=== PATIENT | female | born 1975 | race Caucasian/White ===

== ENCOUNTER 2017-08-02 20:58 | Inpatient (IN) | payer MEDICAID, OTHER ==
[~2017-08-02] VITALS: Ht 154.9 cm; Wt 41.8 kg
[2017-08-02] MEDS ORDERED: ONDANSETRON HCL 4 MG ORAL DISINTEGRATING TAB PO ONE (21:45)
[2017-08-02] MEDS ORDERED: MULTIVITAMINS- 12 INJECTION 10 ML, FOLIC ACID MDV 5 MG, THIAMINE HCL INJ 500 MG in SODI... IV ONE (21:45)
[2017-08-02] MEDS ORDERED: DIATRIZOATE MEGL/DIATRIZOA SOD 30 ML BTL PO ONE (21:46)
[2017-08-02 23:23] LABS: BASOPHILS % 0.3 % (0.0-1.0); HEMATOCRIT 38.9 % (34.2-44.1); HEMOGLOBIN 12.5 g/dL (12.0-16.0); LYMPHOCYTES # (AUTO) 1.7 (1.0-3.2); MEAN CORPUSCULAR HEMOGLOBIN 35.8 pg (28-32); MEAN CORPUSCULAR HGB CONC 32.1 g/dL (31-35); MEAN CORPUSCULAR VOLUME 111.5 fL (81-99); MONOCYTES # (AUTO) 0.3 (0.2-0.8); NEUTROPHILS # (AUTO) 4.7 (2.1-6.9); NEUTROPHILS % 69.4 % (38.7-80.0); PLATELET COUNT 420 x10e3/uL (140-360); RED BLOOD COUNT 3.49 x10e6/uL (3.6-5.1); RED CELL DISTRIBUTION WIDTH 17.7 % (11.7-14.4)
[2017-08-02 23:27] LABS: INR 1.13; PROTHROMBIN TIME 13.6 seconds (11.9-14.5)
[2017-08-02 23:28] LABS: PARTIAL THROMBOPLASTIN TIME 30.9 seconds (23.8-35.5)
[2017-08-02 23:38] LABS: ALANINE AMINOTRANSFERASE 26 IU/L (0-55); ALBUMIN 2.1 g/dL (3.5-5.0); ALBUMIN/GLOBULIN RATIO 0.7 (0.8-2.0); ALKALINE PHOSPHATASE 270 IU/L (40-150); AMYLASE 31 U/L (25-125); ANION GAP 14.3 mmol/L (8-16); BLOOD UREA NITROGEN < 5 mg/dL (7-26); BUN/CREATININE RATIO 6 (6-25); CARBON DIOXIDE 20 mmol/L (22-29); CHLORIDE 110 mmol/L (98-107); CREATININE, SERUM 0.85 mg/dL (0.57-1.11); EST GLOMERULAR FILTRATION RATE > 60 ML/MIN (60-); GLUCOSE 119 mg/dL (74-118); LIPASE 11 U/L (8-78); MAGNESIUM 1.4 MG/DL (1.3-2.1); POTASSIUM 3.3 mmol/L (3.5-5.1); SODIUM 141 mmol/L (136-145)
[2017-08-03] VITALS (19 sets, daily range): BP systolic 116–128; BP diastolic 78–91
--- NOTE | 2017-08-03 00:39 | Diagnostic Imaging Report ---
EXAM: CT Abdomen and Pelvis WITH contrast INDICATION: Abdominal pain, nausea, vomiting, gastric bypass 4 years ago COMPARISON: None. TECHNIQUE: Abdomen and pelvis were scanned utilizing a multidetector helical scanner from the lung base to the pubic symphysis after administration of IV contrast. Coronal and sagittal reformations were obtained. Routine protocol was performed. Scan was performed when during portal venous phase. IV CONTRAST: 100 mL of Isovue-370 ORAL CONTRAST: Water RADIATION DOSE: Total DLP: 196.84 mGy*cm Estimated effective dose: (DLP x 0.015 x size factor) mSv COMPLICATIONS: None FINDINGS: LINES and TUBES: None. LOWER THORAX: Unremarkable HEPATOBILIARY: The liver is diffuse hypodense compared to the spleen, consistent with diffuse hepatic diffuse hepatic steatosis. No focal hepatic lesions. No biliary ductal dilation. GALLBLADDER: Gallbladder hydrops is present No wall thickening. SPLEEN: No splenomegaly. PANCREAS: No focal masses or ductal dilatation. ADRENALS: No adrenal nodules KIDNEYS/URETERS: Kidneys enhance symmetrically. No hydronephrosis. No cystic or solid mass lesions. No stones. GI TRACT: There is distention of the colon and hyperenhancement of the gastric and duodenal mucosa . Hyperdense material in the rectum may represent blood products. Appendix is normal. PELVIC ORGANS/BLADDER: Unremarkable. LYMPH NODES: No lymphadenopathy. VESSELS: Unremarkable. PERITONEUM / RETROPERITONEUM: There is evidence of upper abdominal pneumoperitoneum and moderate amount of fluid in the peritoneal cavity predominantly in the pelvis and lesser sac. BONES: Unremarkable. SOFT TISSUES: Unremarkable. IMPRESSION: 1. Hollow viscus perforation is highly suspected at the level of the stomach/gastric bypass. 2. Large amount of fluid and air in the peritoneal cavity. 3. Hyperdense material in the rectum may represent blood products. 4. Distention of the colon most likely ileus. 5. These findings were discussed with the ER on 08/03/2017 at 12:33 AM Signed by: Dr. Tor Jeff M.D. on 08/03/2017 12:36 AM
[2017-08-03] MEDS ORDERED: METRONIDAZOLE 500MG/NS 100ML 100 ML IV STA (00:41)
[2017-08-03] MEDS ORDERED: CALCIUM CHLORIDE 10% 1.36 MEQ/ML 10ML SYR IV STA (00:41)
[2017-08-03] MEDS ORDERED: LEVOFLOXACIN 500MG/D5W 100ML 100 ML IV STA (00:41)
[2017-08-03] MEDS ORDERED: POTASSIUM CHLORIDE 20MEQ/100ML 100 ML IV STA (00:41)
[2017-08-03] MEDS: SODIUM CHLORIDE 0.9% 1000ML 1,000 ML IV SCH ×5 (00:45→22:23)
[2017-08-03] MEDS ORDERED: MORPHINE SULFATE 2 MG/ML SYR IV STA (00:54)
[2017-08-03] MEDS ORDERED: SODIUM CHLORIDE 0.9% 1000ML 1,000 ML IV ONE ×2 (01:00→01:30)
[2017-08-03] MEDS ORDERED: ONDANSETRON HCL INJ 2 MG/ML VIAL IV PRN (01:15)
[2017-08-03] MEDS ORDERED: LEVOFLOXACIN 500MG/D5W 100ML IV SCH (01:15)
--- OUTSIDE RECORDS SUMMARY | 2017-08-03 01:52 | XMS REPORT ---
Author Author [facility] Address Unknown Phone Unavailable Care Team Providers Care Manifold Builder Name Role Phone GEO PEPPER Unavailable Unavailable Problems This patient has no known problems. Allergies, Adverse Reactions, Alerts This patient has no known allergies or adverse reactions. Medications This patient has no known medications. Results Test Description Test Time Test Comments Text Results Atomic Results Result Comments CT ABDOMEN/PELVIS W [place] [address] Patient Name: CHELO BOWEN MR #: [id number] : 1975 Age/Sex: 42/F Req #: [id number] Adm Physician: Ordered by: GISELLE MONTES BUILD MASTER Report #: [id number] Location: ER Room/Bed: Procedure: [id number] CT/CT ABDOMEN/PELVIS W Exam Date: 08/03/17 Exam Time: 2359 REPORT STATUS: Signed EXAM: CT Abdomen and Pelvis WITH contrast INDICATION: Abdominal pain, nausea, vomiting, gastric bypass 4 years ago COMPARISON: None. TECHNIQUE: Abdomen and pelvis were scanned utilizing a multidetector helical scanner from the lung base to the pubic symphysis after administration of IV contrast. Coronal and sagittal reformations were obtained. Routine protocol was performed. Scan was performed when during portal venous phase. IV CONTRAST: 100 mL of Isovue-370 ORAL CONTRAST: Water RADIATION DOSE: Total DLP: 196.84 mGy*cm Estimated effective dose: (DLP x 0.015 x size factor) mSv COMPLICATIONS: None FINDINGS: LINES and TUBES: None. LOWER THORAX: Unremarkable HEPATOBILIARY: The liver is diffuse hypodense compared to the spleen, consistent with diffuse hepatic diffuse hepatic steatosis. No focal hepatic lesions. No biliary ductal dilation. GALLBLADDER: Gallbladder hydrops is present No wall thickening. SPLEEN: No splenomegaly. PANCREAS: No focal masses or ductal dilatation. ADRENALS: No adrenal nodules KIDNEYS/URETERS : Kidneys enhance symmetrically. No hydronephrosis. No cystic or solid mass lesions. No stones. GI TRACT: There is distention of the colon and hyperenhancement of the gastric and duodenal mucosa . Hyperdense material in the rectum may represent blood products. Appendix is normal. PELVIC ORGANS/BLADDER: Unremarkable. LYMPH NODES: No lymphadenopathy. VESSELS : Unremarkable. PERITONEUM / RETROPERITONEUM: There is evidence of upper abdominal pneumoperitoneum and moderate amount of fluid in the peritoneal cavity predominantly in the pelvis and lesser sac. BONES: Unremarkable. SOFT TISSUES: Unremarkable. IMPRESSION: 1. Hollow viscus perforation is highly suspected at the level of the stomach/gastric bypass. 2. Large amount of fluid and air in the peritoneal cavity. 3. Hyperdense material in the rectum may represent blood products. 4. Distention of the colon most likely ileus. 5. These findings were discussed with the ER on 08/03/2017 at 12:33 AM Signed by: Dr. Tor Jeff M.D. on 12:36 AM Dictated By: TOR TATUM MD Transcribed By: VIVIAN on 08/03/1735 COPY TO: GISELLE MONTES NP
[2017-08-03] MEDS ORDERED: SODIUM CHLORIDE 0.9% 50ML 50 ML ONE (01:56)
[2017-08-03] MEDS ORDERED: IOPAMIDOL 370 MG/ML 200 ML INFUS..BTL INJ ONE (01:56)
[2017-08-03] MEDS ORDERED: FENTANYL CITRATE/PF 100MCG/2 ML INJ ONE ×2 (05:39→14:53)
[2017-08-03] MEDS ORDERED: METRONIDAZOLE 500MG/NS 100ML IV SCH (06:00)
--- NOTE | 2017-08-03 06:22 | Operative Report ---
DATE OF PROCEDURE: August 03, 2017 PREOPERATIVE DIAGNOSIS: Perforated viscus. POSTOPERATIVE DIAGNOSIS: Perforated gastrojejunostomy anastomosis. OPERATIVE PROCEDURES 1. Exploratory laparotomy. 2. Redo gastrojejunostomy. 3. Repair of internal hernia. ANESTHESIA: General endotracheal. INDICATIONS: This patient is a 42-year-old female with a 1-week history of progressive of pain, which became severe in the last few days, anorexic and vomiting. The patient was found on CT scan to have free air in the abdomen with evidence of perforated viscus. She was resuscitated in the emergency room with 2 L of crystalloid, and emergency exploratory laparotomy has been consented by patient and family. PROCEDURE FINDINGS: Perforated gastrojejunostomy with complete breakdown of the gastrojejunostomy anastomosis. A large amount of peritoneal fluid contamination. There is internal herniation of the To type. DESCRIPTION OF PROCEDURE: The patient was brought to the OR and intubated. The abdomen was then prepped with alcohol and draped in a sterile fashion. A midline incision was made from the xiphoid down to the umbilicus through the linea alba. Upon entering the peritoneal cavity, the exudative purulent peritoneal fluid was encountered and suctioned out. Approximately, 500 mL was removed in the upper abdomen. We then localized the site of the perforation, which was at the gastrojejunostomy, which is completely broken down just attached by the 1 small area. At this point, decision made to redo the anastomosis completely. The piece of tissue attached at the remaining anastomosis is completely taken down with scissors. The previous enterotomy on the jejunal side is removed with a AUSTYN stapler along with the mesentery. We then performed a 1-layer anastomosis between the antimesenteric border of the jejunum to the gastric opening using interrupted 2-0 silk stitches full-thickness layer. At the completion of the anastomosis, we proceeded to run the bowel in a retrograde fashion from the ileocecal valve backward. The bowel was noted to be passing through a To hernia behind the Caitie limb, which is actually twisted in a 180-degree fashion. At this point, after reduction of the internal hernia through the To defect, we realized at the anastomosis had to be redone because it is 180 degrees twisted. The silk stitches were taken down. The gastrojejunostomy anastomosis completely disconnected. We then performed the gastrojejunostomy anastomosis again in the correct orientation with twisting, again using full-thickness 1-layer anastomosis between the antimesenteric border of the jejunal Caitie limb and the gastric remnant using interrupted 3-0 silk stitches. Anastomosis was completed. Additional anterior Lembert stitches were placed to reinforce the anastomosis. A tongue of omentum was also placed to cover the gastrojejunostomy. We then irrigated the peritoneal cavity with copious saline solution. Approximately, 6 L were used until all the contaminating fluid was removed. Hemostasis achieved. We placed a 19-Welsh Matty drain in the left upper quadrant adjacent to the anastomoses, and taken out to the stab wound incision in the left lower quadrant. The abdominal cavity was then closed using running 0 PDS starting from both ends and tying in the middle. Skin closed with marcos. The patient was then extubated and transported in guarded condition to the recovery room. Estimated blood loss 50 mL. Job#: [id number] OSMANI
--- NOTE | 2017-08-03 07:05 | Consultation ---
DATE OF CONSULTATION: August 03, 2017 CHIEF COMPLAINT: Abdominal pain. HISTORY OF PRESENT ILLNESS: The patient is 42-year-old female with 6-day history of upper abdominal pain, progressive in severity with no oral intakes in the last 4 days with intermittent nausea and vomiting. No hematemesis. She admits to chills. No diarrhea. PAST MEDICAL HISTORY: Significant for morbid obesity for which she underwent gastric bypass surgery about 5 years ago. ALLERGIES: SHE HAS NO DRUG ALLERGIES. SOCIAL HABITS: She does not smoke or drink alcohol. REVIEW OF SYSTEMS: As mentioned in HPI, severe abdominal pain radiating to the chest. PHYSICAL EXAMINATION: VITAL SIGNS: Temperature 96, pulse 104, blood pressure 96/65. GENERAL: Patient is awake, responsive, in severe discomfort. HEENT: Sclerae nonicteric. NECK: Supple. LUNGS: Clear. HEART: Tachycardic. No murmurs. ABDOMEN: Diffusely tender with rebound tenderness in all quadrants. EXTREMITIES: Clammy and cold. No edema. LABORATORY DATA: White cell count 6.7, hemoglobin of 12, platelet count 420,000. Creatinine 0.8. Lipase 11. CT scan showed pneumoperitoneum and fluid collection in the upper abdomen suggestive of perforated viscus. ASSESSMENT: Perforated viscus in patient who had gastric bypass surgery. PLAN: Exploratory laparotomy, possible bowel resection. Attendant risks discussed. Thank you. Job#: [id number]
[2017-08-03] MEDS: METRONIDAZOLE 500MG/NS 100ML 100 ML IV SCH ×3 (07:34→18:13)
[2017-08-03 07:48] LABS: BASOPHILS % 0.2 % (0.0-1.0); HEMATOCRIT 36.9 % (34.2-44.1); HEMOGLOBIN 11.6 g/dL (12.0-16.0); LYMPHOCYTES # (AUTO) 0.7 (1.0-3.2); LYMPHOCYTES % 8.1 % (18.0-39.1); MEAN CORPUSCULAR HEMOGLOBIN 35.5 pg (28-32); MEAN CORPUSCULAR HGB CONC 31.4 g/dL (31-35); MEAN CORPUSCULAR VOLUME 112.8 fL (81-99); MONOCYTES # (AUTO) 0.6 (0.2-0.8); MONOCYTES % 6.9 % (4.4-11.3); NEUTROPHILS # (AUTO) 7.7 (2.1-6.9); NEUTROPHILS % 84.6 % (38.7-80.0); PLATELET COUNT 360 x10e3/uL (140-360); RED BLOOD COUNT 3.27 x10e6/uL (3.6-5.1); RED CELL DISTRIBUTION WIDTH 17.5 % (11.7-14.4)
[2017-08-03 08:11] LABS: ANION GAP 12.3 mmol/L (8-16); BLOOD UREA NITROGEN < 5 mg/dL (7-26); BUN/CREATININE RATIO 8 (6-25); CALCIUM 7.6 mg/dL (8.4-10.2); CARBON DIOXIDE 19 mmol/L (22-29); CHLORIDE 117 mmol/L (98-107); CREATININE, SERUM 0.66 mg/dL (0.57-1.11); EST GLOMERULAR FILTRATION RATE > 60 ML/MIN (60-); GLUCOSE 114 mg/dL (74-118); POTASSIUM 4.3 mmol/L (3.5-5.1); SODIUM 144 mmol/L (136-145)
[2017-08-03] MEDS: MORPHINE SULFATE 2 MG/ML SYR IV PRN ×3 (10:14→22:56)
[2017-08-03] MEDS ORDERED: GABAPENTIN300 MG PO (10:49)
[2017-08-03] MEDS ORDERED: DEXAMETHASONE SOD PHOS INJ 4 MG/ML VIAL ONE (18:40)
[2017-08-03] MEDS ORDERED: LIDOCAINE HCL 2% LOCAL INJ 5 ML SDV VIAL INJ ONE (18:40)
[2017-08-03] MEDS ORDERED: GLYCOPYRROLATE INJ 1MG/ 5 ML SYR ONE (18:40)
[2017-08-03] MEDS ORDERED: ONDANSETRON HCL INJ 2 MG/ML VIAL ONE (18:40)
[2017-08-03] MEDS ORDERED: SEVOFLURANE INHAL SOLN 250 ML PEN BTL ONE (18:40)
[2017-08-03] MEDS ORDERED: ACETAMINOPHEN 1000 MG/100 ML IV ONE (18:40)
[2017-08-03] MEDS ORDERED: LABETALOL HCL 5 MG/ML 20ML VIAL ONE (18:40)
[2017-08-03] MEDS ORDERED: PROPOFOL IV EMULSION 10 MG/ML 20 ML VIAL ONE (18:40)
[2017-08-03] MEDS ORDERED: ROCURONIUM BROMIDE 10 MG/ML 5ML VIAL ONE (18:40)
[2017-08-03] MEDS ORDERED: NEOSTIGMINE 1 MG/ML 10ML VIAL ONE (18:40)
[2017-08-03] MEDS ORDERED: HYDROMORPHONE 1MG/1ML INJ IV PRN (18:45)
[2017-08-03] MEDS ORDERED: LACTATED RINGER'S 1,000 ML ONE (18:45)
[2017-08-03] MEDS ORDERED: LACTATED RINGER'S 1,000 ML IV ONE (18:45)
[2017-08-03] MEDS ORDERED: HYDROMORPHONE 2MG/ML INJ IV PRN (18:45)
[2017-08-03] MEDS: LEVOFLOXACIN 500MG/D5W 100ML 100 ML IV SCH (22:34)
[2017-08-03] MEDS: METOPROLOL TARTRATE INJ 1 MG/ML VIAL IV PRN (22:35)
[2017-08-03] MEDS ORDERED: SUBOXONE 8 MG-1 EAC2 PO (23:11)
[2017-08-04] VITALS (39 sets, daily range): BP systolic 119–138; BP diastolic 85–105
[2017-08-04] MEDS: METRONIDAZOLE 500MG/NS 100ML 100 ML IV SCH ×4 (00:25→17:56)
[2017-08-04] MEDS: HYDROMORPHONE 2MG/ML INJ IV PRN ×6 (00:26→19:41)
[2017-08-04] MEDS ORDERED: FUROSEMIDE INJ 10 MG/ML 2 ML VIAL IV ONE (01:45)
[2017-08-04] MEDS ORDERED: DIATRIZOATE MEGL/DIATRIZOA SOD 30 ML BTL PO ONE (02:00)
[2017-08-04] MEDS ORDERED: THIAMINE HCL INJ 100 MG/ML 2ML VIAL IV ONE (03:15)
[2017-08-04] MEDS ORDERED: FENTANYL 50 MCG/HR PATCH TOP SCH (03:30)
--- NOTE | 2017-08-04 03:44 | Diagnostic Imaging Report ---
EXAM: CT Abdomen and Pelvis WITHOUT contrast INDICATION: Postsurgical leak COMPARISON: 08/03/2017 TECHNIQUE: Abdomen and pelvis were scanned utilizing a multidetector helical scanner from the lung base to the pubic symphysis without administration of IV contrast. Absence of intravenous contrast decreases sensitivity for detection of focal lesions and vascular pathology. Coronal and sagittal reformations were obtained. Routine protocol was performed. IV CONTRAST: None. ORAL CONTRAST: Gastrografin RADIATION DOSE: Total DLP: 416.37 mGy*cm Estimated effective dose: (DLP x 0.015 x size factor) mSv COMPLICATIONS: None FINDINGS: LINES and TUBES: NG tube, left upper quadrant drain and Alanis catheter are present. LOWER THORAX: The development of bibasilar airspace opacities and small bilateral pleural effusions. The airspace disease most likely represent aspiration or atelectasis in this patient status post surgery HEPATOBILIARY: The liver is diffuse hypodense compared to the spleen, consistent with diffuse hepatic diffuse hepatic steatosis. No focal hepatic lesions. No biliary ductal dilation. GALLBLADDER: Hydropic gallbladder with dependent hyperdensity. No wall thickening. SPLEEN: No splenomegaly. PANCREAS: No focal masses or ductal dilatation. ADRENALS: No adrenal nodules KIDNEYS/URETERS: No hydronephrosis. No cystic or solid mass lesions. No stones. GI TRACT: No abnormal distention, wall thickening, or evidence of bowel obstruction. Positive contrast was given through NG tube demonstrating radiopaque contrast within the stomach and proximal jejunum confirming patency of the gastrojejunostomy. No evidence of contrast leak into the peritoneal cavity. Appendix is not clearly identified. There is however no fat stranding or adenopathy in the right lower quadrant to suggest appendicitis. PELVIC ORGANS/BLADDER: Unremarkable. LYMPH NODES: No lymphadenopathy. VESSELS: Unremarkable. PERITONEUM / RETROPERITONEUM: Near resolution of free abdominal fluid and pneumoperitoneum in this patient is status post laparotomy BONES: Unremarkable. SOFT TISSUES: Unremarkable. IMPRESSION: 1. Positive contrast was given through NG tube without evidence of intraperitoneal leak. Normal passage of contrast from the stomach into the gastrojejunostomy. 2. Near resolution of ascites and pneumoperitoneum. 3. Development of bibasilar atelectasis/aspiration with small pleural effusions. 4. Hydropic gallbladder. Signed by: Dr. Tor Jeff M.D. on 08/04/2017 3:40 AM
[2017-08-04] MEDS: SODIUM CHLORIDE 0.9% 1000ML 1,000 ML IV SCH ×6 (05:11→19:26)
[2017-08-04 06:07] LABS: BASOPHILS % 0.2 % (0.0-1.0); HEMATOCRIT 32.6 % (34.2-44.1); HEMOGLOBIN 10.6 g/dL (12.0-16.0); LYMPHOCYTES # (AUTO) 1.4 (1.0-3.2); LYMPHOCYTES % 12.1 % (18.0-39.1); MEAN CORPUSCULAR HEMOGLOBIN 35.8 pg (28-32); MEAN CORPUSCULAR HGB CONC 32.5 g/dL (31-35); MEAN CORPUSCULAR VOLUME 110.1 fL (81-99); MONOCYTES # (AUTO) 1.2 (0.2-0.8); MONOCYTES % 10.4 % (4.4-11.3); NEUTROPHILS # (AUTO) 9.1 (2.1-6.9); PLATELET COUNT 354 x10e3/uL (140-360); RED BLOOD COUNT 2.96 x10e6/uL (3.6-5.1); RED CELL DISTRIBUTION WIDTH 18.1 % (11.7-14.4)
--- NOTE | 2017-08-04 06:15 | Diagnostic Imaging Report ---
EXAMINATION: CHEST SINGLE (PORTABLE) INDICATION: Abdominal pain, perforation. COMPARISON: CT abdomen and pelvis on 08/04/2017 FINDINGS: TUBES and LINES: NG tube is visualized with tip in the region of the gastric body. NG tube sidehole appears within the distal esophagus. LUNGS: Lungs are not well inflated. There is predominantly left lower lobe airspace opacity in the retrocardiac space. PLEURA: Small left pleural effusion. HEART AND MEDIASTINUM: The cardiomediastinal silhouette is unremarkable. BONES AND SOFT TISSUES: No acute osseous lesion. Soft tissues are unremarkable. UPPER ABDOMEN: No free air under the diaphragm. IMPRESSION: Minimal airspace disease in the left lower lobe associated with trace of pleural effusion best visualized on CT of the abdomen and pelvis. Signed by: Dr. Tor Jeff M.D. on 08/04/2017 6:12 AM
[2017-08-04 06:43] LABS: ALANINE AMINOTRANSFERASE 22 IU/L (0-55); ALBUMIN 1.5 g/dL (3.5-5.0); ALBUMIN/GLOBULIN RATIO 0.6 (0.8-2.0); ALKALINE PHOSPHATASE 202 IU/L (40-150); ANION GAP 11.1 mmol/L (8-16); BLOOD UREA NITROGEN < 5 mg/dL (7-26); CALCIUM 7.8 mg/dL (8.4-10.2); CARBON DIOXIDE 21 mmol/L (22-29); CHLORIDE 117 mmol/L (98-107); CREATININE, SERUM 0.51 mg/dL (0.57-1.11); EST GLOMERULAR FILTRATION RATE > 60 ML/MIN (60-); GLUCOSE 92 mg/dL (74-118); POTASSIUM 4.1 mmol/L (3.5-5.1); SODIUM 145 mmol/L (136-145)
[2017-08-04 06:45] LABS: BUN/CREATININE RATIO 10 (6-25)
[2017-08-04 07:22] LABS: FREE THYROXINE INDEX 1.3464 (1.4-3.8); THYROID STIMULATING HORMONE 1.886 uIU/mL (0.350-4.940)
[2017-08-04] MEDS: MULTIVITAMINS- 12 INJECTION 10 ML, FOLIC ACID MDV 5 MG, THIAMINE HCL INJ 100 MG in SODI... IV SCH ×2 (08:00→19:40)
--- NOTE | 2017-08-04 08:37 | Consultation ---
DATE OF CONSULTATION: August 04, 2017 PULMONARY CRITICAL CARE MEDICINE CONSULT REASON FOR REFERRAL: Pulmonary hygiene and postoperative state. HISTORY: Mrs. Huber is a pleasant 42-year-old female with abdominal pain. The patient was not feeling very good for at least 4 days. The patient was hardly eating. She has had progressive nausea. The patient denies any hematemesis. No diarrhea. She comes to the emergency room for evaluation. She is feeling worse. In the emergency room, CT scan shows pneumoperitoneum and fluid collection in upper abdomen suggestive of perforated viscus. The patient had a pre-existing abdominal surgery history. In December 2012, she underwent Caitie-en-Y bypass as part of a weight loss program. The patient underwent exploratory laparotomy with redo gastrojejunostomy and repair of internal hernia. The important operative finding was a perforated gastrojejunostomy anastomosis. Estimated blood loss was 15 mL. She comes to the ICU. Heart rate often up to 140-150. However, she is hemodynamically stable. She has good urine output. She is in a lot of pain. At this time, I am consulted. PAST MEDICAL HISTORY: History of Caitie-en-Y 5 years ago for morbid obesity, chronic pain, on Suboxone therapy. MEDICATIONS: She claims she is on Suboxone with Dr. Prosper Benedict, and she states she is on 14 mg dose. Other medicines per EMR. Currently, on Levaquin and Flagyl for infection. ALLERGIES: NO KNOWN DRUG ALLERGIES. SOCIAL HISTORY: She denies heavy drinking. She claims she smoked. Denies drugs. FAMILY HISTORY: Noncontributory. REVIEW OF SYSTEMS GENERAL: There is weight changes. There is a 20-pound weight loss in 2 months. HEENT: No dry mouth. ENDOCRINE: No thyroid disease. PULMONARY: No asthma. CARDIAC: No heart attacks. GI: No chronic constipation. : No blood in the urine. DERMATOLOGIC: No rash. MUSCULOSKELETAL: Mild arthritis. NEUROLOGIC: No seizures. PSYCHIATRIC: No depression. PHYSICAL EXAMINATION VITALS: Afebrile. Vital signs noted and stable per record. HEENT: Normocephalic and atraumatic. NECK: Supple. Throat midline. LUNGS: Bilateral air entry is good. Few bilateral rhonchi. CARDIOVASCULAR: S1 and S2. No murmurs, rubs or gallops. ABDOMEN: Soft and nontender. EXTREMITIES: No clubbing. No cyanosis. There is no edema. INTEGUMENT: No rash. No purpura. LABS: White count 10, hematocrit 12 and creatinine 0.8. Lipase 11. INR 1.1. Alkaline phosphatase 270, AST 57, ALT 26. White count 9 noted. Hematocrit was 36.9 with MCV of 111. B12 level was 817. HCG level was negative. IMPRESSION AND PLAN 1. Severe tachycardia, multifactorial. 2. Treat for perforated gastrojejunostomy anastomosis. 3. Treat for secondary peritonitis. 4. Status post repair of internal hernia. 5. Postoperative state, status post redo gastrojejunostomy. 6. Chronic pain. 7. Morbid obesity, status post previous Caitie-en-Y in December 2012. 8. Postoperative pain. 9. Microcytic hemoglobin. 10. Suspected chronic nutritional deficiency, not otherwise specified. At this time, will give thiamine. Furthermore, vitamins daily. Continue IV fluids for now. IV antibiotics for peritonitis. Will give her some long-acting opiates and try to taper off some of the fast-acting opiates. Will follow along closely. The patient is in guarded condition. Will check ultrasound of the legs. Screening chest x-ray. Check urine drug screen. Thank you very much, Dr. Graham and Dr. Venegas for this consult. I remain available for questions. Please call. Job#: [id number] OSMANI
[2017-08-04] MEDS: METOPROLOL TARTRATE INJ 1 MG/ML VIAL IV PRN ×2 (12:00→19:50)
[2017-08-04] MEDS ORDERED: FENTANYL CITRATE/PF 100MCG/2 ML INJ ONE (12:59)
[2017-08-04] MEDS ORDERED: MIDAZOLAM HCL 2 MG/2 ML VIAL ONE (12:59)
[2017-08-04] MEDS ORDERED: LIDOCAINE HCL 1% LOCAL INJ 20 ML VIAL ONE (13:17)
[2017-08-04] MEDS ORDERED: MIDAZOLAM HCL 2 MG/2 ML VIAL IV ONE (14:00)
[2017-08-04] MEDS ORDERED: FENTANYL CITRATE/PF 100MCG/2 ML INJ IV ONE (14:00)
--- NOTE | 2017-08-04 15:26 | Diagnostic Imaging Report ---
PROCEDURE:PERC CHOLECYSTOSTOMY W TUBE PLACEMENT INC IMAGING COMPARISON:[facility], CT, CT ABDOMEN/PELVIS WO, 08/04/2017, 2:54. INDICATIONS:Gallbladder hydrops DLP: 633.73mGy-cm FINDINGS:Informed consent and time out was performed. SEDATION:Procedure was performed with conscious sedation and the patient received a total of 2 mg of Versed and 100 mcg of Fentanyl. The patient was continuously monitored prior to and following the procedure. Sterile preparation of the right upper abdomen was accomplished. A grid was placed over the right lobe of the liver. Appropriate position was determined and local anesthesia was accomplished with 1% Xylocaine. A 5 [place] Yueh catheter was then placed into the gallbladder. Aspiration of thick dark bilious fluid was noted. A 0.035 inch Amplatz Super Stiff wire was placed through the Yueh catheter and followed by an 8 [place]ander dilator. A 10 [place] all-purpose drainage catheter was then placed into the gallbladder. This was secured to the skin with 3-0 suture. Catheter was connected to a drainage bag. Post catheter placement images were obtained. Specimen was sent to the laboratory for culture and sensitivity. CONCLUSION:Successful image guided cholecystostomy tube placement. Renny Martinez D.O. Dictated by: Renny Martinez D.O. on 08/04/2017 at 15:28 Electronically approved by: Renny Martinez D.O. on 08/04/2017 at 15:28
[2017-08-04] MEDS ORDERED: HYDROMORPHONE 1MG/1ML INJ IV PRN (17:45)
[2017-08-04] MEDS ORDERED: HYDROMORPHONE 2MG/ML INJ IV PRN (18:00)
[2017-08-04] MEDS: ACETAMINOPHEN 1000 MG/100 ML IV PRN (22:05)
[2017-08-04] MEDS: LEVOFLOXACIN 500MG/D5W 100ML 100 ML IV SCH (22:32)
[2017-08-05] VITALS (51 sets, daily range): BP systolic 117–139; BP diastolic 86–105
[2017-08-05] MEDS: MULTIVITAMINS- 12 INJECTION 10 ML, FOLIC ACID MDV 5 MG, THIAMINE HCL INJ 100 MG in SODI... IV SCH ×3 (00:12→22:05)
[2017-08-05] MEDS: METRONIDAZOLE 500MG/NS 100ML 100 ML IV SCH ×4 (00:29→17:34)
--- NOTE | 2017-08-05 00:40 | Progress Note ---
DATE: August 04, 2017 PULMONARY MEDICINE PROGRESS NOTE FOLLOWUP Patient maintained with continued tachycardias into the evening. Patient is awake. She is on fentanyl patch in addition to the Dilaudid. We will continue to follow along closely. maintain. Labs will be ordered for the morning. Continue metoprolol although it is not high indication. Patient needs aggressive antibiotics for this sepsis. Greater than 30 minutes of direct care today and multiple followups from the morning to evening. We will follow along closely. She remains in critical condition and she will stay in ICU. Job#: [id number]
[2017-08-05] MEDS: HYDROMORPHONE 2MG/ML INJ IV PRN ×7 (00:41→23:13)
[2017-08-05] MEDS: ACETAMINOPHEN 1000 MG/100 ML IV PRN ×2 (05:07→20:14)
[2017-08-05 05:40] LABS: BASOPHILS % 0.3 % (0.0-1.0); EOSINOPHILS % 0.1 % (0.0-6.0); HEMATOCRIT 34.5 % (34.2-44.1); HEMOGLOBIN 10.1 g/dL (12.0-16.0); LYMPHOCYTES # (AUTO) 2.1 (1.0-3.2); LYMPHOCYTES % 17.6 % (18.0-39.1); MEAN CORPUSCULAR HEMOGLOBIN 35.9 pg (28-32); MEAN CORPUSCULAR HGB CONC 29.3 g/dL (31-35); MEAN CORPUSCULAR VOLUME 122.8 fL (81-99); MONOCYTES # (AUTO) 1.1 (0.2-0.8); MONOCYTES % 9.6 % (4.4-11.3); NEUTROPHILS # (AUTO) 8.4 (2.1-6.9); NEUTROPHILS % 72.1 % (38.7-80.0); PLATELET COUNT 279 x10e3/uL (140-360); RED BLOOD COUNT 2.81 x10e6/uL (3.6-5.1); RED CELL DISTRIBUTION WIDTH 18.2 % (11.7-14.4)
--- NOTE | 2017-08-05 06:02 | Diagnostic Imaging Report ---
EXAMINATION: CHEST SINGLE (PORTABLE) INDICATION: Weakness, cough COMPARISON: 08/04/2017 FINDINGS: TUBES and LINES: NG tube is stable in good position. There is a partially visualized left upper quadrant drain. LUNGS: Lungs are not well inflated. Interlobular septi thickening. Interval increase in airspace opacity involving the left lower lobe and now also affected the bilateral upper lobes PLEURA: No pleural effusion or pneumothorax. HEART AND MEDIASTINUM: The cardiomediastinal silhouette is unremarkable. BONES AND SOFT TISSUES: No acute osseous lesion. Soft tissues are unremarkable. UPPER ABDOMEN: No free air under the diaphragm. IMPRESSION: 1. Findings are compatible with left lung infection versus aspiration. 2. Mild interlobular septal thickening compatible with edema. Signed by: Dr. Tor Jeff M.D. on 08/05/2017 5:58 AM
[2017-08-05 06:06] LABS: ALANINE AMINOTRANSFERASE 16 IU/L (0-55); ALBUMIN 1.4 g/dL (3.5-5.0); ALBUMIN/GLOBULIN RATIO 0.5 (0.8-2.0); ALKALINE PHOSPHATASE 174 IU/L (40-150); ANION GAP 12.3 mmol/L (8-16); BLOOD UREA NITROGEN < 5 mg/dL (7-26); CALCIUM 7.5 mg/dL (8.4-10.2); CARBON DIOXIDE 16 mmol/L (22-29); CHLORIDE 119 mmol/L (98-107); CREATININE, SERUM 0.46 mg/dL (0.57-1.11); EST GLOMERULAR FILTRATION RATE > 60 ML/MIN (60-); GLUCOSE 61 mg/dL (74-118); MAGNESIUM 1.4 MG/DL (1.3-2.1); POTASSIUM 4.3 mmol/L (3.5-5.1); SODIUM 143 mmol/L (136-145)
[2017-08-05 06:20] LABS: BUN/CREATININE RATIO 11 (6-25)
[2017-08-05] MEDS: METOPROLOL TARTRATE INJ 1 MG/ML VIAL IV PRN ×2 (10:24→20:14)
[2017-08-05] MEDS ORDERED: FUROSEMIDE INJ 10 MG/ML 4 ML VIAL IV NR (12:00)
--- NOTE | 2017-08-05 12:44 | Diagnostic Imaging Report ---
Examination: Single AP view of the chest. COMPARISON: Single chest 08/05/2017 INDICATION: PICC line placement IMPRESSION: 1. Lines and Tubes: Interval placement of right-sided PICC line, which is distal tip projecting at the cavoatrial junction. 2. Enteric tube has distal tip projecting at the GE junction and proximal side port projecting in the distal esophagus. Further advancement is recommended. 3. Otherwise no interval change. Signed by: Dr. Saturnino Vasquez M.D. on 08/05/2017 12:40 PM
--- NOTE | 2017-08-05 15:55 | Progress Note ---
DATE: August 05, 2017 PULMONARY MEDICINE PROGRESS NOTE SUBJECTIVE: Mrs. Huber was seen and examined at the bedside. The patient went for ultrasound of the legs, which showed no evidence of any lower extremity DVT. Three liters per minute nasal cannula oxygen at this time and tolerating well. She is intermittently even on room air oxygen. However, she still remains with tachycardia often in the 110-120 heart rate. In 3.6 and 2.1 L out. She is getting slight increase in pain medicine, but is readily awakening on these. REVIEW OF SYSTEMS: No bleeding. No rash. OBJECTIVE VITALS: Afebrile. Vital signs noted per electronic record. GENERAL: No acute distress. Alert and calm. HEENT: Normocephalic and atraumatic. NECK: Supple. Throat midline. LUNGS: Bilateral air entry. Few decreased breath sounds in the bases, especially the left side. Rare rhonchi. CARDIOVASCULAR: S1 and S2. No murmurs, rubs or gallops. ABDOMEN: Soft and nontender. EXTREMITIES: No clubbing. No cyanosis. There is no edema. INTEGUMENT: No rash. No purpura. LABS: Potassium 4.3, less than 5 BUN, creatinine 0.5. White count 12, hematocrit 35 and platelets 279,000. IMPRESSION AND PLAN 1. Severe tachycardia, multifactorial. 2. Chronic opiate use, on chronic Suboxone for suspected dependence. 3. Mild postoperative hypoxemia. 4. Severe protein calorie malnutrition. 5. History of bariatric surgery. 6. Hydrops of gallbladder, status post cholecystostomy tube. 7. Rupture of gastrojejunostomy, status post redo gastrojejunostomy anastomosis. Continue with aggressive therapy for peritonitis. Continue pain management and follow serially in the ICU. Follow up as the heart rate continues to go down. Continue IV fluids. Continue daily vitamins. Will follow along closely. Job#: [id number] OSMANI
[2017-08-05] MEDS: LEVOFLOXACIN 500MG/D5W 100ML 100 ML IV SCH (22:45)
[2017-08-05] MEDS: LORAZEPAM INJ 2 MG/ML VIAL IV PRN (23:15)
[2017-08-06] VITALS (59 sets, daily range): BP systolic 100–130; BP diastolic 74–95
[2017-08-06] MEDS: METRONIDAZOLE 500MG/NS 100ML 100 ML IV SCH ×4 (00:28→17:44)
[2017-08-06] MEDS: MULTIVITAMINS- 12 INJECTION 10 ML, FOLIC ACID MDV 5 MG, THIAMINE HCL INJ 100 MG in SODI... IV SCH ×2 (00:30→08:42)
[2017-08-06] MEDS: HYDROMORPHONE 2MG/ML INJ IV PRN ×5 (04:50→21:11)
[2017-08-06] MEDS: METOPROLOL TARTRATE INJ 1 MG/ML VIAL IV PRN ×3 (05:37→20:47)
[2017-08-06 05:42] LABS: BASOPHILS % 0.2 % (0.0-1.0); EOSINOPHILS % 0.3 % (0.0-6.0); HEMATOCRIT 28.5 % (34.2-44.1); HEMOGLOBIN 8.9 g/dL (12.0-16.0); LYMPHOCYTES # (AUTO) 2.4 (1.0-3.2); MEAN CORPUSCULAR HEMOGLOBIN 35.7 pg (28-32); MEAN CORPUSCULAR HGB CONC 31.2 g/dL (31-35); MEAN CORPUSCULAR VOLUME 114.5 fL (81-99); MONOCYTES % 8.3 % (4.4-11.3); NEUTROPHILS # (AUTO) 8.3 (2.1-6.9); NEUTROPHILS % 70.7 % (38.7-80.0); PLATELET COUNT 312 x10e3/uL (140-360); RED BLOOD COUNT 2.49 x10e6/uL (3.6-5.1); RED CELL DISTRIBUTION WIDTH 17.4 % (11.7-14.4)
[2017-08-06 06:02] LABS: ANION GAP 17.1 mmol/L (8-16); BLOOD UREA NITROGEN < 5 mg/dL (7-26); CALCIUM 7.6 mg/dL (8.4-10.2); CARBON DIOXIDE 15 mmol/L (22-29); CHLORIDE 116 mmol/L (98-107); CREATININE, SERUM 0.44 mg/dL (0.57-1.11); EST GLOMERULAR FILTRATION RATE > 60 ML/MIN (60-); POTASSIUM 3.1 mmol/L (3.5-5.1); SODIUM 145 mmol/L (136-145)
[2017-08-06 06:05] LABS: BUN/CREATININE RATIO 11 (6-25)
[2017-08-06 06:06] LABS: GLUCOSE 51 mg/dL (74-118)
[2017-08-06] MEDS ORDERED: DEXTROSE 50% SYRINGE 50 ML IV ONE (06:12)
[2017-08-06] MEDS: DEXTROSE 50% SYRINGE 50 ML IV PRN ×3 (06:40→12:56)
--- NOTE | 2017-08-06 07:01 | Diagnostic Imaging Report ---
EXAMINATION: CHEST SINGLE (PORTABLE) INDICATION: Pneumonia. COMPARISON: 08/05/2017 FINDINGS: TUBES and LINES: Right upper extremity PICC line and NG tube are in good position. Left upper quadrant drain is stable. LUNGS: Lungs are not well inflated. There are bibasilar atelectasis. Worsening interlobular septi thickening and alveolar opacities compatible with pulmonary edema. Confluent left lower lobe opacity is less conspicuous in keeping with pneumonia. PLEURA: No pleural effusion or pneumothorax. HEART AND MEDIASTINUM: The cardiomediastinal silhouette is unremarkable. BONES AND SOFT TISSUES: No acute osseous lesion. Soft tissues are unremarkable. UPPER ABDOMEN: No free air under the diaphragm. IMPRESSION: 1. Worsening pulmonary edema. 2. Persistent left lower lobe opacity, less conspicuous consistent with pneumonia. 3. Tubes and lines are in good position. Signed by: Dr. Tor Jeff M.D. on 08/06/2017 6:58 AM
[2017-08-06] MEDS ORDERED: POTASSIUM CHLORIDE 20MEQ/100ML 200 ML IV ONE ×2 (11:45→14:15)
[2017-08-06] MEDS ORDERED: MAGNESIUM SULFATE 2GM/50ML 100 ML IV ONE (11:45)
[2017-08-06] MEDS ORDERED: MAGNESIUM SULFATE IV ONE (12:30)
[2017-08-06] MEDS ORDERED: SODIUM CHLORIDE 0.9% IV ONE (12:30)
[2017-08-06] MEDS: FUROSEMIDE INJ 10 MG/ML 4 ML VIAL IV SCH ×2 (12:33→21:11)
[2017-08-06] MEDS ORDERED: MAGNESIUM SULFATE 2GM/50ML 50 ML IV ONE (14:15)
[2017-08-06] MEDS: SODIUM BICARBONATE 8.4% IV SCH (14:38)
[2017-08-06] MEDS: DEXTROSE 5% IV SCH (14:38)
[2017-08-06] MEDS: POTASSIUM CHL IV SCH (14:38)
--- NOTE | 2017-08-06 14:42 | Progress Note ---
DATE: August 06, 2017 PULMONARY MEDICINE PROGRESS NOTE SUBJECTIVE: Mrs. Huber was seen and examined at bedside. Oxygen saturation 95% and 2 L per minute by nasal cannula. She intermittently desaturates to the low 80s or high 80% range. In 1.6 L and out 3.9 L. The patient is not coughing and not participating with incentive spirometry nor mobilization as per the nurses. Patient continues on pain medicine. Chest x-ray shows worse edema, but she got Lasix, and she is already responding very well to this. REVIEW OF SYSTEMS: No headaches. No rash. OBJECTIVE VITALS: Afebrile. Vital signs noted per electronic record. GENERAL: In no acute distress. Alert and calm. HEENT: Normocephalic and atraumatic. NECK: Supple. Throat midline. LUNGS: Bilateral air entry. Moderate rhonchi in both lungs. CARDIOVASCULAR: S1 and S2. No murmurs, rubs or gallops. ABDOMEN: Soft and nontender. EXTREMITIES: No clubbing. No cyanosis. There is trace edema. INTEGUMENT: No rash. No purpura. LABS: Potassium 3.1, BUN 5, creatinine 0.4. White count 12, hematocrit 29 and platelets 312,000. IMPRESSION AND PLAN 1. Fluid overload, iatrogenic and multifactorial. 2. Perforated gastrojejunostomy anastomosis: Status post gastrojejunal repair. 3. Chronic pain. 4. Hypokalemia and hypomagnesemia. 5. Retained airway secretions. 6. Tachycardia, sinus, not otherwise specified: Multifactorial including from withdrawal from pain medicines, residual sepsis/systemic inflammatory response syndrome/infection, possible nutritional deficiency, chronic. 7. Treat for chronic nutritional deficiency, anemia with macrocytosis. Continue daily vitamins. Change fluids and give more dextrose. Will follow along closely. Change IV fluids out. IV antibiotics for sepsis. Job#: [id number] OSMANI
[2017-08-06] MEDS: ENOXAPARIN SOD INJ 40 MG/0.4 ML SYR SC SCH (17:44)
[2017-08-06] MEDS: LEVOFLOXACIN 500MG/D5W 100ML 100 ML IV SCH (21:11)
[2017-08-06] MEDS: LORAZEPAM INJ 2 MG/ML VIAL IV PRN (21:12)
[2017-08-06] MEDS ORDERED: METOPROLOL TARTRATE INJ 1 MG/ML VIAL IV PRN (22:45)
[2017-08-07] VITALS (78 sets, daily range): BP systolic 84–119; BP diastolic 48–89
[2017-08-07] MEDS: METRONIDAZOLE 500MG/NS 100ML 100 ML IV SCH ×4 (00:43→18:00)
[2017-08-07] MEDS: HYDROMORPHONE 2MG/ML INJ IV PRN ×4 (00:47→12:59)
[2017-08-07] MEDS: SODIUM BICARBONATE 8.4% IV SCH (02:41)
[2017-08-07] MEDS: POTASSIUM CHL IV SCH (02:41)
[2017-08-07] MEDS: DEXTROSE 5% IV SCH (02:41)
[2017-08-07 06:16] LABS: BASOPHILS % 0.2 % (0.0-1.0); EOSINOPHILS # (AUTO) 0.1 (0.0-0.4); EOSINOPHILS % 0.3 % (0.0-6.0); HEMATOCRIT 28.6 % (34.2-44.1); HEMOGLOBIN 9.4 g/dL (12.0-16.0); LYMPHOCYTES # (AUTO) 1.5 (1.0-3.2); LYMPHOCYTES % 10.5 % (18.0-39.1); MEAN CORPUSCULAR HEMOGLOBIN 34.9 pg (28-32); MEAN CORPUSCULAR HGB CONC 32.9 g/dL (31-35); MEAN CORPUSCULAR VOLUME 106.3 fL (81-99); MONOCYTES # (AUTO) 2.1 (0.2-0.8); MONOCYTES % 14.2 % (4.4-11.3); NEUTROPHILS # (AUTO) 10.9 (2.1-6.9); NEUTROPHILS % 74.3 % (38.7-80.0); PLATELET COUNT 320 x10e3/uL (140-360); RED BLOOD COUNT 2.69 x10e6/uL (3.6-5.1); RED CELL DISTRIBUTION WIDTH 17.1 % (11.7-14.4)
[2017-08-07 06:40] LABS: ALANINE AMINOTRANSFERASE 9 IU/L (0-55); ALBUMIN 1.4 g/dL (3.5-5.0); ALBUMIN/GLOBULIN RATIO 0.5 (0.8-2.0); ALKALINE PHOSPHATASE 153 IU/L (40-150); ANION GAP 11.9 mmol/L (8-16); CALCIUM 7.6 mg/dL (8.4-10.2); CARBON DIOXIDE 28 mmol/L (22-29); CHLORIDE 106 mmol/L (98-107); CREATININE, SERUM 0.48 mg/dL (0.57-1.11); EST GLOMERULAR FILTRATION RATE > 60 ML/MIN (60-); GLUCOSE 116 mg/dL (74-118); MAGNESIUM 1.4 MG/DL (1.3-2.1); PHOSPHORUS 2.3 MG/DL (2.3-4.7); POTASSIUM 3.9 mmol/L (3.5-5.1); SODIUM 142 mmol/L (136-145)
[2017-08-07 06:44] LABS: BLOOD UREA NITROGEN < 5 mg/dL (7-26); BUN/CREATININE RATIO 10 (6-25)
--- NOTE | 2017-08-07 07:02 | Diagnostic Imaging Report ---
EXAMINATION: CHEST SINGLE (PORTABLE) INDICATION: Edema COMPARISON: 08/06/2017 FINDINGS: TUBES and LINES: Right upper extremity PICC line and NG tube are in good position. Left upper quadrant drain is stable. LUNGS: Lungs are not well inflated. There are bibasilar atelectasis. Worsening interlobular septi thickening and alveolar opacities compatible with pulmonary edema. Confluent left lower lobe opacity is less conspicuous in keeping with pneumonia. PLEURA: No pleural effusion or pneumothorax. HEART AND MEDIASTINUM: The cardiomediastinal silhouette is unremarkable. BONES AND SOFT TISSUES: No acute osseous lesion. Soft tissues are unremarkable. UPPER ABDOMEN: No free air under the diaphragm. IMPRESSION: 1. Stable pulmonary edema. 2. Persistent left lower lobe opacity, less conspicuous consistent with pneumonia. 3. Tubes and lines are in good position. Signed by: Dr. Tor Jeff M.D. on 08/07/2017 6:58 AM
[2017-08-07 07:41] LABS: CLARITY,URINE CLEAR (CLEAR); COLOR,URINE YELLOW (YELLOW); LEUKOCYTE ESTERASE ,URINE NEGATIVE (NEGATIVE); NITRITE,URINE NEGATIVE (NEGATIVE)
[2017-08-07 07:42] LABS: BILIRUBIN,URINE NEGATIVE (NEGATIVE); KETONES,URINE NEGATIVE (NEGATIVE); PROTEIN,URINE DIPSTICK NEGATIVE (NEGATIVE); URINE UROBILINOGEN 0.2 mg/dL (0.2 - 1)
[2017-08-07 07:43] LABS: AMPHETAMINES SCREEN,URINE NEGATIVE (NEGATIVE); BENZODIAZEPINES SCREEN,URINE POSITIVE (NEGATIVE); PHENCYCLIDINE SCREEN,URINE NEGATIVE (NEGATIVE)
[2017-08-07 08:15] LABS: LYMPHOCYTES % (MANUAL) 10 % (19-48); MONOCYTES % (MANUAL) 19 % (3.4-9.0); NEUTROPHILS % (MANUAL) 70 % (40-74)
[2017-08-07 08:16] LABS: ANISOCYTOSIS SLIGHT; HYPOCHROMASIA SLIGHT; PLATELET ESTIMATE ADEQUATE; PLATELET MORPHOLOGY COMMENT NORMAL
[2017-08-07 08:18] LABS: RBC MORPHOLOGY COMMENT NORMAL; STOMATOCYTES SLIGHT
[2017-08-07 08:19] LABS: BACTERIA,URINE RARE /HPF; EPITHELIAL CELLS,URINE FEW /LPF
[2017-08-07 08:24] LABS: RBC,URINE 0-5 /HPF (0-5); YEAST,URINE MODERATE
[2017-08-07] MEDS: FUROSEMIDE INJ 10 MG/ML 4 ML VIAL IV SCH ×2 (09:48→21:07)
[2017-08-07] MEDS: PANTOPRAZOLE 40 MG 10ML VIAL IV SCH (11:00)
--- NOTE | 2017-08-07 12:50 | Progress Note ---
DATE: August 07, 2017 PULMONARY MEDICINE PROGRESS NOTE SUBJECTIVE: Mrs. Huber was seen and examined at bedside. She continues to have some difficulty mobilizing. She had a repeat CT today. Bicarbonate is much better today on IV bicarbonate replacement. No more hypoglycemia with the dextrose back up. Has 92% oxygen saturation on 5 L per minute nasal cannula. NG tube output is 150 mL over 4 hours, but part of it is flushes as well. She remains in bed weak and in pain. However, she states the pain is a little bit better today. REVIEW OF SYSTEMS: No bleeding. No chest pain. OBJECTIVE VITALS: Afebrile. Vital signs noted per electronic record. GENERAL: Looks weak and pale in bed, lying mostly flat, does not want to move. HEENT: Normocephalic and atraumatic. NECK: Supple. Throat midline. LUNGS: Bilateral air entry. Mild to moderate rhonchi bilaterally. CARDIOVASCULAR: S1 and S2. No murmurs, rubs or gallops. ABDOMEN: Soft and nontender. EXTREMITIES: No clubbing. No cyanosis. There is no edema. INTEGUMENT: No rash. No purpura. LABS: BUN 5, creatinine 0.5, 142 sodium, 15 white count, 29 hematocrit, 320 platelets. IMPRESSION AND PLAN 1. Abnormal chest radiography, pneumonia. 2. Retained airway secretions. 3. Sinus tachycardia, stabilizing we hope. 4. Treat for perforated gastrojejunostomy anastomosis. 5. Treat for secondary peritonitis. 6. Status post repair of internal hernia. 7. Chronic pain. 8. History of previous Caitie-en-Y jejunostomy in December 2012. 9. Clinical severe protein-calorie malnutrition and suspected chronic nutritional deficiency. Modify IV fluids to remove the bicarbonate. Repeat electrolytes in the morning. TPN to be started per report. Continue oxygen supplementation. Keep opiates at a lower dose to allow the patient to continue to expectorate and not suppress her cough. Continue NG tube monitoring and suction. Patient remains in very guarded condition and should stay in the ICU. Job#: [id number]
[2017-08-07] MEDS: POTASSIUM CHL 20 MEQ in DEXTROSE 5% 1,000 ML IV SCH ×2 (13:30→23:06)
[2017-08-07] MEDS: ENOXAPARIN SOD INJ 40 MG/0.4 ML SYR SC SCH (17:30)
[2017-08-07] MEDS: ACETAMINOPHEN 1000 MG/100 ML IV PRN (17:50)
[2017-08-07] MEDS ORDERED: CENTRAL TPN FORMULA 1 BAG IV SCH (20:00)
[2017-08-07] MEDS: LEVOFLOXACIN 500MG/D5W 100ML 100 ML IV SCH (22:00)
[2017-08-08] VITALS (90 sets, daily range): BP systolic 73–118; BP diastolic 31–85
[2017-08-08] MEDS: METRONIDAZOLE 500MG/NS 100ML 100 ML IV SCH ×5 (00:15→23:55)
[2017-08-08 06:40] LABS: BASOPHILS % 0.3 % (0.0-1.0); EOSINOPHILS # (AUTO) 0.1 (0.0-0.4); EOSINOPHILS % 0.4 % (0.0-6.0); HEMATOCRIT 26.2 % (34.2-44.1); HEMOGLOBIN 8.7 g/dL (12.0-16.0); LYMPHOCYTES # (AUTO) 1.9 (1.0-3.2); LYMPHOCYTES % 14.1 % (18.0-39.1); MEAN CORPUSCULAR HEMOGLOBIN 35.1 pg (28-32); MEAN CORPUSCULAR HGB CONC 33.2 g/dL (31-35); MEAN CORPUSCULAR VOLUME 105.6 fL (81-99); MONOCYTES # (AUTO) 1.9 (0.2-0.8); MONOCYTES % 13.9 % (4.4-11.3); NEUTROPHILS # (AUTO) 9.7 (2.1-6.9); NEUTROPHILS % 70.6 % (38.7-80.0); PLATELET COUNT 278 x10e3/uL (140-360); RED BLOOD COUNT 2.48 x10e6/uL (3.6-5.1); RED CELL DISTRIBUTION WIDTH 16.6 % (11.7-14.4)
--- NOTE | 2017-08-08 07:01 | Diagnostic Imaging Report ---
EXAM: CHEST SINGLE (PORTABLE), AP 1 view INDICATION: Pneumonia COMPARISON: AP view of the chest August 07, 2017 FINDINGS: LINES/TUBES: Stable position of nasogastric tube and right subclavian central line and left upper quadrant drain. LUNGS: Persistent consolidation in the left lung base and bilateral reticulonodular changes. PLEURA: Cannot exclude pleural effusion on the left. HEART AND MEDIASTINUM: Normal size and contour. BONES AND SOFT TISSUES: No acute findings. IMPRESSION: Stable findings of pneumonia, predominantly in the left lung base. Signed by: Dr. Shellie Edwards M.D. on 08/08/2017 6:57 AM
[2017-08-08 07:04] LABS: ALANINE AMINOTRANSFERASE 6 IU/L (0-55); ALBUMIN 1.3 g/dL (3.5-5.0); ALBUMIN/GLOBULIN RATIO 0.5 (0.8-2.0); ALKALINE PHOSPHATASE 127 IU/L (40-150); ANION GAP 10.3 mmol/L (8-16); BLOOD UREA NITROGEN < 5 mg/dL (7-26); CALCIUM 7.6 mg/dL (8.4-10.2); CARBON DIOXIDE 33 mmol/L (22-29); CHLORIDE 99 mmol/L (98-107); EST GLOMERULAR FILTRATION RATE > 60 ML/MIN (60-); GLUCOSE 98 mg/dL (74-118); MAGNESIUM 1.4 MG/DL (1.3-2.1); POTASSIUM 3.3 mmol/L (3.5-5.1); SODIUM 139 mmol/L (136-145)
[2017-08-08 07:05] LABS: BUN/CREATININE RATIO 13 (6-25)
[2017-08-08] MEDS: HYDROMORPHONE 2MG/ML INJ IV PRN ×3 (08:20→21:00)
[2017-08-08] MEDS: PANTOPRAZOLE 40 MG 10ML VIAL IV SCH (08:47)
[2017-08-08] MEDS: FUROSEMIDE INJ 10 MG/ML 4 ML VIAL IV SCH (08:47)
[2017-08-08] MEDS: ACETAMINOPHEN 1000 MG/100 ML IV PRN ×2 (10:38→18:15)
--- NOTE | 2017-08-08 12:39 | Progress Note ---
DATE: August 08, 2017 PULMONARY MEDICINE PROGRESS NOTE SUBJECTIVE: Ms. Huber was seen and examined at bedside. Patient continues to have spontaneous breathing. We had come down on her pain medicines again. The patient was able to stand up, but we seem to really have to encourage her strongly to get up. She reportedly started coughing a little bit. She still remains in a lot of pain and refused some incentive spirometry. Had 2.6 L in and 4.0 L out recorded. Patient is seeing a decubitus. REVIEW OF SYSTEMS: No headache. No bleeding. OBJECTIVE VITALS: Afebrile. Vital signs noted per electronic record. GENERAL: No acute distress, alert and calm. HEENT: Normocephalic and atraumatic. NECK: Supple. Throat midline. LUNGS: Bilateral air entry. Rare rhonchi, much better today. CARDIOVASCULAR: S1 and S2. No murmurs, rubs or gallops. ABDOMEN: Soft and nontender. EXTREMITIES: No clubbing. No cyanosis. There is no edema. INTEGUMENT: No rash. No purpura. LABS: Potassium 2.2, less than 5 BUN, 0.4 creatinine, 14 white count, 26 hematocrit, 278 platelets. IMPRESSION AND PLAN 1. Secondary peritonitis. 2. Perforated gastrojejunostomy anastomosis. 3. Status post repair of internal hernia and redo gastrojejunostomy. 4. Tachycardia, multifactorial, sinus. 5. Chronic pain. 6. Chronic nutritional deficiency with superimposed acute. 7. Morbid obesity. History of Caitie-en-Y surgery in December 2012. PLAN 1. Continue vitamin supplement. 2. Continue TPN. 3. IV antibiotics continue. 4. Encourage the patient to get up. 5. Continue to decrease pain medicines as feasible. Job#: [id number]
[2017-08-08] MEDS ORDERED: VANCOMYCIN 1GM/NS 250 ML 250 ML IV SCH (15:00)
[2017-08-08] MEDS: FLUCONAZOLE 200 MG/100 ML 100 ML IV SCH (16:10)
[2017-08-08] MEDS: ENOXAPARIN SOD INJ 40 MG/0.4 ML SYR SC SCH (16:59)
[2017-08-08] MEDS: BALSAM PERU/CASTOR OIL 60 GM OINT...G. TP SCH (18:10)
[2017-08-08] MEDS ORDERED: ACETAMINOPHEN 1000 MG/100 ML IV PRN (18:45)
[2017-08-08] MEDS ORDERED: CENTRAL TPN FORMULA 1 BAG IV SCH (20:00)
[2017-08-08] MEDS: LORAZEPAM INJ 2 MG/ML VIAL IV PRN (21:48)
[2017-08-08] MEDS: CEFEPIME HCL 1 GM VIAL IV SCH (22:05)
[2017-08-08] MEDS: LEVOFLOXACIN 500MG/D5W 100ML 100 ML IV SCH (22:05)
[2017-08-09] VITALS (63 sets, daily range): BP systolic 93–128; BP diastolic 61–100
[2017-08-09] MEDS: VANCOMYCIN 750MG/NS 150ML IVPB 150 ML IV SCH ×2 (03:00→15:23)
[2017-08-09] MEDS: CEFEPIME HCL 1 GM VIAL IV SCH ×3 (06:00→21:15)
[2017-08-09] MEDS: METRONIDAZOLE 500MG/NS 100ML 100 ML IV SCH ×4 (06:00→23:34)
[2017-08-09] MEDS: HYDROMORPHONE 2MG/ML INJ IV PRN ×6 (06:00→21:25)
--- NOTE | 2017-08-09 06:37 | Diagnostic Imaging Report ---
EXAM: CHEST SINGLE (PORTABLE), AP 1 view INDICATION: Pneumonia COMPARISON: AP view of the chest August 08, 2017 FINDINGS: LINES/TUBES: Stable right approach PICC and nasal/orogastric tube. Left upper quadrant surgical drain. LUNGS: Persistent airspace opacities bilaterally, predominantly in the left lung base. PLEURA: Possible left pleural effusion. HEART AND MEDIASTINUM: Normal size and contour. BONES AND SOFT TISSUES: No acute findings. IMPRESSION: Stable appearance of the chest. Findings concerning for multifocal pneumonia. Signed by: Dr. Shellie Edwards M.D. on 08/09/2017 6:34 AM
[2017-08-09 06:44] LABS: BASOPHILS % 0.3 % (0.0-1.0); EOSINOPHILS # (AUTO) 0.3 (0.0-0.4); EOSINOPHILS % 2.9 % (0.0-6.0); HEMATOCRIT 23.6 % (34.2-44.1); HEMOGLOBIN 7.7 g/dL (12.0-16.0); LYMPHOCYTES % 18.7 % (18.0-39.1); MEAN CORPUSCULAR HEMOGLOBIN 34.1 pg (28-32); MEAN CORPUSCULAR HGB CONC 32.6 g/dL (31-35); MEAN CORPUSCULAR VOLUME 104.4 fL (81-99); MONOCYTES # (AUTO) 1.2 (0.2-0.8); MONOCYTES % 11.3 % (4.4-11.3); NEUTROPHILS # (AUTO) 6.9 (2.1-6.9); NEUTROPHILS % 66.2 % (38.7-80.0); PLATELET COUNT 248 x10e3/uL (140-360); RED BLOOD COUNT 2.26 x10e6/uL (3.6-5.1); RED CELL DISTRIBUTION WIDTH 16.7 % (11.7-14.4)
[2017-08-09 07:07] LABS: ANION GAP 9.5 mmol/L (8-16); BLOOD UREA NITROGEN 5 mg/dL (7-26); BUN/CREATININE RATIO 13 (6-25); CALCIUM 7.6 mg/dL (8.4-10.2); CARBON DIOXIDE 31 mmol/L (22-29); CHLORIDE 105 mmol/L (98-107); CREATININE, SERUM 0.38 mg/dL (0.57-1.11); EST GLOMERULAR FILTRATION RATE > 60 ML/MIN (60-); GLUCOSE 92 mg/dL (74-118); MAGNESIUM 1.5 MG/DL (1.3-2.1); PHOSPHORUS 3.1 MG/DL (2.3-4.7); POTASSIUM 3.5 mmol/L (3.5-5.1); SODIUM 142 mmol/L (136-145)
[2017-08-09] MEDS: BALSAM PERU/CASTOR OIL 60 GM OINT...G. TP SCH ×2 (08:29→16:52)
[2017-08-09] MEDS: PANTOPRAZOLE 40 MG 10ML VIAL IV SCH (09:13)
[2017-08-09] MEDS: FUROSEMIDE INJ 10 MG/ML 4 ML VIAL IV SCH (09:13)
[2017-08-09] MEDS ORDERED: SODIUM CHLORIDE 0.9% 250ML 250 ML IV ONE (11:15)
[2017-08-09] MEDS ORDERED: FENTANYL 25 MCG/HR PATCH TOP SCH (11:15)
--- NOTE | 2017-08-09 11:31 | Progress Note ---
DATE: August 09, 2017 PULMONARY MEDICINE PROGRESS NOTE SUBJECTIVE: Ms. Huber was seen and examined at bedside. She continues to have slow progress. Today she was able to mobilize and sit in a chair. The patient continues to have steady progress. Besides sitting up in a chair, her heart rate remained stable in 110s to 120s range. She is tolerating somewhat of a decrease in pain medicines. Gastric output 375 from NG tube. The drainage was 265 mL total over the 2 drains that are in place on her abdomen. The patient is tolerating TPN in general. Four liters per minute by nasal cannula with 95% oxygen saturation. REVIEW OF SYSTEMS: No headache. No bleeding. OBJECTIVE VITALS: Afebrile. Vital signs noted per electronic record. GENERAL: No acute distress, looks pale sitting up in a chair. HEENT: Normocephalic and atraumatic. NECK: Supple. Throat midline. LUNGS: Bilateral air entry. Decreased rhonchi today. Decreased effort, however, so limited. CARDIOVASCULAR: S1 and S2. No murmurs, rubs or gallops. ABDOMEN: Soft and nontender. EXTREMITIES: No clubbing. No cyanosis. There is no edema. INTEGUMENT: No rash. No purpura. LABS: White count 10.5, 24 hematocrit, 248 platelets. Potassium 2.5, 31 bicarbonate, 5 BUN, 0.4 creatinine. White count 10, 23 hematocrit, 248 platelets. Chest x-ray consistent with pneumonitis. IMPRESSION AND PLAN 1. Secondary peritonitis, perforated gastrojejunostomy anastomosis. 2. Chronic pain. 3. Tachycardia persistent. 4. Early decubitus of skin. 5. Chronic nutritional deficiency , acute nutritional deficiency superimposed. 6. History of morbid obesity and Caitie-en-Y surgery in the past. PLAN 1. Continue current treatment. 2. Patient will continue on some IV fluids. We asked the wharf builder to evaluate the TPN and nutrition formulation to ensure it is optimized. 3. Patient will continue with pain management, but will slightly titrate downwards. 4. Continue treatment for severe peritonitis. 5. Follow along closely. Job#: [id number]
[2017-08-09] MEDS ORDERED: ACETAMINOPHEN 1000 MG/100 ML IV PRN (12:30)
[2017-08-09] MEDS: FLUCONAZOLE 200 MG/100 ML 100 ML IV SCH (14:11)
[2017-08-09] MEDS ORDERED: HYDROMORPHONE 1MG/1ML INJ IV PRN (15:15)
[2017-08-09] MEDS ORDERED: SODIUM CHLORIDE 0.9% 250ML 250 ML ONE ×2 (17:03→19:15)
[2017-08-09] MEDS: ENOXAPARIN SOD INJ 40 MG/0.4 ML SYR SC SCH (18:04)
[2017-08-09] MEDS: CENTRAL TPN FORMULA 1 BAG IV SCH (19:55)
[2017-08-09] MEDS: LEVOFLOXACIN 500MG/D5W 100ML 100 ML IV SCH (21:15)
[2017-08-10] VITALS (47 sets, daily range): BP systolic 104–142; BP diastolic 77–98
[2017-08-10] MEDS: HYDROMORPHONE 2MG/ML INJ IV PRN ×7 (00:34→21:10)
[2017-08-10] MEDS: LORAZEPAM INJ 2 MG/ML VIAL IV PRN ×2 (01:10→21:09)
[2017-08-10] MEDS: VANCOMYCIN 750MG/NS 150ML IVPB 150 ML IV SCH ×2 (03:00→15:53)
[2017-08-10] MEDS ORDERED: SODIUM CHLORIDE 0.9% 250ML 250 ML ONE (04:04)
[2017-08-10] MEDS: CEFEPIME HCL 1 GM VIAL IV SCH ×3 (05:12→22:12)
[2017-08-10 06:20] LABS: BASOPHILS # (AUTO) 0.1 (0.0-0.1); BASOPHILS % 0.5 % (0.0-1.0); EOSINOPHILS # (AUTO) 0.3 (0.0-0.4); HEMATOCRIT 30.6 % (34.2-44.1); HEMOGLOBIN 10.4 g/dL (12.0-16.0); LYMPHOCYTES # (AUTO) 2.6 (1.0-3.2); LYMPHOCYTES % 25.4 % (18.0-39.1); MEAN CORPUSCULAR HEMOGLOBIN 32.5 pg (28-32); MEAN CORPUSCULAR VOLUME 95.6 fL (81-99); MONOCYTES # (AUTO) 1.1 (0.2-0.8); NEUTROPHILS # (AUTO) 6.1 (2.1-6.9); NEUTROPHILS % 59.5 % (38.7-80.0); PLATELET COUNT 260 x10e3/uL (140-360); RED CELL DISTRIBUTION WIDTH 23.2 % (11.7-14.4)
[2017-08-10 06:53] LABS: ALBUMIN 1.3 g/dL (3.5-5.0); ALBUMIN/GLOBULIN RATIO 0.5 (0.8-2.0); ALKALINE PHOSPHATASE 95 IU/L (40-150); ANION GAP 10.7 mmol/L (8-16); BLOOD UREA NITROGEN 6 mg/dL (7-26); BUN/CREATININE RATIO 16 (6-25); CALCIUM 7.9 mg/dL (8.4-10.2); CARBON DIOXIDE 27 mmol/L (22-29); CHLORIDE 108 mmol/L (98-107); CREATININE, SERUM 0.37 mg/dL (0.57-1.11); EST GLOMERULAR FILTRATION RATE > 60 ML/MIN (60-); GLUCOSE 73 mg/dL (74-118); MAGNESIUM 1.9 MG/DL (1.3-2.1); PHOSPHORUS 4.6 MG/DL (2.3-4.7); POTASSIUM 3.7 mmol/L (3.5-5.1); SODIUM 142 mmol/L (136-145); TRIGLYCERIDES 110 MG/DL (0-149)
[2017-08-10 06:55] LABS: ALANINE AMINOTRANSFERASE < 6 IU/L (0-55)
[2017-08-10 07:44] LABS: ANISOCYTOSIS MODE; HYPOCHROMASIA SLIGHT; PLATELET ESTIMATE ADEQUATE; PLATELET MORPHOLOGY COMMENT FEW GIANT; POIKILOCYTOSIS MODERATE; RBC MORPHOLOGY COMMENT ABNORMAL
[2017-08-10] MEDS: BALSAM PERU/CASTOR OIL 60 GM OINT...G. TP SCH ×2 (08:02→16:33)
[2017-08-10] MEDS: FUROSEMIDE INJ 10 MG/ML 4 ML VIAL IV SCH (08:26)
[2017-08-10] MEDS: PANTOPRAZOLE 40 MG 10ML VIAL IV SCH (08:26)
[2017-08-10] MEDS: ACETAMINOPHEN 1000 MG/100 ML IV PRN ×3 (10:43→22:21)
--- NOTE | 2017-08-10 12:53 | Progress Note ---
DATE: August 10, 2017 PULMONARY MEDICINE PROGRESS NOTE SUBJECTIVE: Ms. Huber was seen and examined at bedside. She continues to have a lot of tachycardia in place. Heart rate, however, is slowly trending downward, often 110 beats per minute. On 4 L per minute by nasal cannula, 100% oxygen saturation. Had 3.5 L in and 3.1 L out. Patient continues with a lot of pain and decreased mobility. She did get some Ativan to help her sleep yesterday. REVIEW OF SYSTEMS: No bleeding. No rash. OBJECTIVE VITALS: Afebrile. Vital signs noted per electronic record. GENERAL: No acute distress, alert and calm, but pale and not moving much. HEENT: Normocephalic and atraumatic. NECK: Supple. Throat midline. LUNGS: Bilateral air entry. A few crackles, mostly better. CARDIOVASCULAR: S1 and S2. No murmurs, rubs or gallops. ABDOMEN: Soft and nontender. EXTREMITIES: No clubbing. No cyanosis. There is no edema. INTEGUMENT: No rash. No purpura. LABS: White count 10, 31 hematocrit, 260 platelets. Potassium 3.7, 6 BUN, 0.4 creatinine. Magnesium level is 1.9, and phosphorus is 4.6. Triglycerides 110. LFTs are still mostly okay. Albumin level is 1.3. IMPRESSION AND PLAN 1. Postoperative state, status post gastrojejunostomy anastomosis perforation. 2. Secondary peritonitis. 3. Severe protein-calorie malnutrition. 4. History of bariatric surgery and clinical malabsorption and malnutrition state. 5. Multifocal pneumonitis secondary to lung injury most likely. PLAN: Continue medicines for comfort. Optimize them to not suppress her breathing. The patient will still need more antibiotics. Patient will get some potassium supplementation. Continue DVT prophylaxis and antibiotics. The patient as well will be given slow amounts of TPN. Will follow along closely. Nutrition consult was requested. Job#: [id number]
[2017-08-10] MEDS ORDERED: POTASSIUM CHLORIDE 20MEQ/100ML 100 ML IV ONE (13:45)
[2017-08-10] MEDS: FLUCONAZOLE 200 MG/100 ML 100 ML IV SCH (15:53)
[2017-08-10] MEDS: ENOXAPARIN SOD INJ 40 MG/0.4 ML SYR SC SCH (16:35)
[2017-08-10] MEDS: CENTRAL TPN FORMULA 1 BAG IV SCH (20:00)
--- NOTE | 2017-08-10 20:16 | Consultation ---
DATE OF CONSULTATION: August 07, 2017 HISTORY OF PRESENT ILLNESS: This patient is in intensive care unit. She was admitted on August 03. She is a 42-year-old who comes in with abdominal pain getting progressively worse. The patient has a history of morbid obesity, underwent gastric bypass surgery about 5 years ago with significant weight loss. She was coming with abdominal pain. The patient was diagnosed with perforated viscus. The patient was seen by Dr. Venegas. Underwent surgery on August 03. She was started on IV antibiotic, but the patient continued to have fever, so infectious disease was consulted. The patient was seen and examined, chart reviewed. She is a 42-year-old white female who comes in with 1 week of abdominal pain, getting progressively worse; anorexia; vomiting. A CT scan done in the emergency room showed to have air in the abdomen with evidence of perforated viscus. The patient was given IV fluid. She was on antibiotic and she was taken to the OR. The patient was found to have perforated gastrojejunostomy with complete breakdown of the gastrojejunostomy anastomosis. A large amount of peritoneal fluid was found with stools. The patient then was discharged to the intensive care unit. The patient was seen by Dr. Wolfe. She has been here since then. In the ICU, she was tachycardic with fever. She was started on antibiotic. Infectious disease was consulted because fever persisted. PHYSICAL EXAMINATION: GENERAL: She was noncommunicative, sedative. VITALS: Stable at the time I saw her. HEENT: She is not icteric. NECK: Supple. No JVD. CHEST: Few crackles bilateral, coarse. HEART: S1, S2. No murmur. ABDOMEN: Soft, distended. Bowel sounds hypoactive. EXTREMITIES: No edema. IMPRESSION: 1. Sepsis secondary to peritonitis. 2. Concern about pneumonia, aspiration/hospital related infection. 3. Tachycardia and hypotensive secondary to above. 4. History of obesity. 5. History of previous Caitie-en-Y. 6. Anemia of chronic disease. RECOMMENDATIONS: Agree with blood cultures, urine cultures. Will put the patient on vancomycin, cefepime and metronidazole. Can discontinue Levaquin. Recheck CBC. Recheck chem panel. Will follow with you. Thank you for asking me to see this patient. Job#: [id number] GE
[2017-08-10] MEDS: LEVOFLOXACIN 500MG/D5W 100ML 100 ML IV SCH (22:12)
[2017-08-11] VITALS (20 sets, daily range): BP systolic 87–127; BP diastolic 70–89
[2017-08-11] MEDS: HYDROMORPHONE 2MG/ML INJ IV PRN ×7 (00:03→23:45)
[2017-08-11] MEDS: VANCOMYCIN 750MG/NS 150ML IVPB 150 ML IV SCH ×2 (03:06→15:03)
[2017-08-11] MEDS: CEFEPIME HCL 1 GM VIAL IV SCH ×3 (05:53→23:44)
[2017-08-11 06:08] LABS: BASOPHILS # (AUTO) 0.1 (0.0-0.1); BASOPHILS % 0.8 % (0.0-1.0); EOSINOPHILS # (AUTO) 0.3 (0.0-0.4); EOSINOPHILS % 3.1 % (0.0-6.0); HEMATOCRIT 31.1 % (34.2-44.1); LYMPHOCYTES # (AUTO) 2.2 (1.0-3.2); LYMPHOCYTES % 20.5 % (18.0-39.1); MEAN CORPUSCULAR HEMOGLOBIN 32.1 pg (28-32); MEAN CORPUSCULAR HGB CONC 32.2 g/dL (31-35); MEAN CORPUSCULAR VOLUME 99.7 fL (81-99); MONOCYTES # (AUTO) 1.2 (0.2-0.8); MONOCYTES % 11.3 % (4.4-11.3); NEUTROPHILS # (AUTO) 6.8 (2.1-6.9); PLATELET COUNT 295 x10e3/uL (140-360); RED BLOOD COUNT 3.12 x10e6/uL (3.6-5.1); RED CELL DISTRIBUTION WIDTH 22.3 % (11.7-14.4)
--- NOTE | 2017-08-11 06:22 | Diagnostic Imaging Report ---
EXAM: CHEST SINGLE (PORTABLE), AP 1 view INDICATION: CHF COMPARISON: AP view of the chest August 09, 2017 FINDINGS: LINES/TUBES: Stable position of the right approach PICC and nasal/orogastric tube and left upper quadrant drain. LUNGS: Persistent bilateral airspace opacities. PLEURA: Possible left pleural effusion. HEART AND MEDIASTINUM: Stable appearance. BONES AND SOFT TISSUES: No acute findings. IMPRESSION: Findings concerning for multifocal pneumonia. Signed by: Dr. Shellie Edwards M.D. on 08/11/2017 6:18 AM
[2017-08-11 07:01] LABS: ANION GAP 9.4 mmol/L (8-16); BLOOD UREA NITROGEN 7 mg/dL (7-26); BUN/CREATININE RATIO 21 (6-25); CALCIUM 7.9 mg/dL (8.4-10.2); CARBON DIOXIDE 27 mmol/L (22-29); CHLORIDE 107 mmol/L (98-107); CREATININE, SERUM 0.34 mg/dL (0.57-1.11); EST GLOMERULAR FILTRATION RATE > 60 ML/MIN (60-); GLUCOSE 90 mg/dL (74-118); POTASSIUM 4.4 mmol/L (3.5-5.1); SODIUM 139 mmol/L (136-145)
[2017-08-11 07:48] LABS: EOSINOPHILS % (MANUAL) 3 % (0-7); HYPOCHROMASIA SLIGHT; LYMPHOCYTES % (MANUAL) 18 % (19-48); MONOCYTES % (MANUAL) 9 % (3.4-9.0); NEUTROPHILS % (MANUAL) 70 % (40-74)
[2017-08-11 07:49] LABS: ANISOCYTOSIS SLIGHT; PLATELET ESTIMATE ADEQUATE; PLATELET MORPHOLOGY COMMENT NORMAL; RBC MORPHOLOGY COMMENT NORMAL
[2017-08-11] MEDS: BALSAM PERU/CASTOR OIL 60 GM OINT...G. TP SCH ×2 (07:53→17:32)
[2017-08-11] MEDS: ACETAMINOPHEN 1000 MG/100 ML IV PRN (07:54)
[2017-08-11] MEDS: FUROSEMIDE INJ 10 MG/ML 4 ML VIAL IV SCH (09:16)
[2017-08-11] MEDS: PANTOPRAZOLE 40 MG 10ML VIAL IV SCH (09:16)
--- NOTE | 2017-08-11 12:18 | Progress Note ---
DATE: August 11, 2017 PULMONARY MEDICINE PROGRESS NOTE SUBJECTIVE: Ms. Huber was seen and examined at bedside. Patient continues to have some difficulty mobilizing. She is 2-person max assist according to the physical therapy notes. However, they did get her walking in the hallway. Patient with the heart rate slowly coming down now in the 100s to 110s max. REVIEW OF SYSTEMS: No bleeding, no rash. OBJECTIVE VITAL SIGNS: Afebrile. Vital signs noted per electronic record. GENERALLY: Still appears weak and pale with an NG tube in place and Alanis in place. LABS: BUN 7, creatinine 0.3. Potassium 4.4. White count 11, hematocrit 31. IMPRESSION AND PLAN 1. Postoperative state, status post perforated gastrojejunostomy. 2. Postoperative state, status post emergent repair of gastrojejunostomy anastomosis. 3. Secondary peritonitis. 4. Chronic pain. 5. Bilateral pneumonitis, multifocal. At this time will continue current treatment. Patient will have further therapy. We were actually able to get her to walk today. Continue to mobilize her. Limit pain medicines to lowest necessary dose. Continue NG tube as per surgeon. Patient as well will have antibiotics continued. Chest x-ray slowly trending better and will intermittently continue chest x-rays as needed. Job#: [id number] EV
[2017-08-11] MEDS: FLUCONAZOLE 200 MG/100 ML 100 ML IV SCH (15:00)
[2017-08-11] MEDS ORDERED: ACETAMINOPHEN 1000 MG/100 ML IV PRN (16:15)
[2017-08-11] MEDS: ENOXAPARIN SOD INJ 40 MG/0.4 ML SYR SC SCH (18:02)
[2017-08-11] MEDS: CENTRAL TPN FORMULA 1 BAG IV SCH (21:06)
[2017-08-11] MEDS: LORAZEPAM INJ 2 MG/ML VIAL IV PRN (23:45)
[2017-08-12] VITALS (8 sets, daily range): BP systolic 91–120; BP diastolic 67–84
[2017-08-12] MEDS: VANCOMYCIN 750MG/NS 150ML IVPB 150 ML IV SCH ×2 (03:11→15:37)
[2017-08-12] MEDS: HYDROMORPHONE 2MG/ML INJ IV PRN ×7 (04:14→23:50)
[2017-08-12] MEDS: CEFEPIME HCL 1 GM VIAL IV SCH ×3 (05:41→21:24)
[2017-08-12] MEDS: BALSAM PERU/CASTOR OIL 60 GM OINT...G. TP SCH ×2 (09:54→16:29)
[2017-08-12] MEDS: PANTOPRAZOLE 40 MG 10ML VIAL IV SCH (09:54)
[2017-08-12] MEDS: FUROSEMIDE INJ 10 MG/ML 4 ML VIAL IV SCH (09:54)
[2017-08-12 09:57] LABS: BASOPHILS # (AUTO) 0.1 (0.0-0.1); BASOPHILS % 0.7 % (0.0-1.0); EOSINOPHILS # (AUTO) 0.2 (0.0-0.4); EOSINOPHILS % 2.2 % (0.0-6.0); HEMATOCRIT 32.5 % (34.2-44.1); HEMOGLOBIN 10.7 g/dL (12.0-16.0); LYMPHOCYTES # (AUTO) 2.3 (1.0-3.2); LYMPHOCYTES % 21.4 % (18.0-39.1); MEAN CORPUSCULAR HEMOGLOBIN 32.4 pg (28-32); MEAN CORPUSCULAR HGB CONC 32.9 g/dL (31-35); MEAN CORPUSCULAR VOLUME 98.5 fL (81-99); MONOCYTES # (AUTO) 1.1 (0.2-0.8); MONOCYTES % 10.3 % (4.4-11.3); NEUTROPHILS % 64.9 % (38.7-80.0); PLATELET COUNT 355 x10e3/uL (140-360); RED CELL DISTRIBUTION WIDTH 20.2 % (11.7-14.4)
[2017-08-12 10:12] LABS: ALANINE AMINOTRANSFERASE 7 IU/L (0-55); ALBUMIN 1.6 g/dL (3.5-5.0); ALBUMIN/GLOBULIN RATIO 0.4 (0.8-2.0); ALKALINE PHOSPHATASE 109 IU/L (40-150); ANION GAP 11.6 mmol/L (8-16); BLOOD UREA NITROGEN 9 mg/dL (7-26); BUN/CREATININE RATIO 23 (6-25); CALCIUM 8.6 mg/dL (8.4-10.2); CARBON DIOXIDE 26 mmol/L (22-29); CHLORIDE 105 mmol/L (98-107); CREATININE, SERUM 0.39 mg/dL (0.57-1.11); EST GLOMERULAR FILTRATION RATE > 60 ML/MIN (60-); GLUCOSE 97 mg/dL (74-118); POTASSIUM 4.6 mmol/L (3.5-5.1); SODIUM 138 mmol/L (136-145)
--- NOTE | 2017-08-12 10:41 | Diagnostic Imaging Report ---
EXAMINATION: CHEST SINGLE (PORTABLE) INDICATION: \S\pneumonia \S\Y COMPARISON: Chest radiograph 08/11/2017 FINDINGS: AP view TUBES and LINES: Stable right upper extremity PICC with tip overlying the cavoatrial junction. Interval removal of NG tube. A left upper quadrant drain is unchanged in position. LUNGS: Persistent bibasilar opacities, left greater than right. This appears slightly improved on the left. PLEURA: No pleural effusion or pneumothorax. HEART AND MEDIASTINUM: The cardiomediastinal silhouette is unremarkable. BONES AND SOFT TISSUES: Unchanged. UPPER ABDOMEN: No free air under the diaphragm. Skin marcos project over the right upper quadrant. IMPRESSION: Bibasilar opacities, left greater than right, remain concerning for multifocal pneumonia. Signed by: DR. Jaden Price MD on 08/12/2017 10:37 AM
[2017-08-12] MEDS ORDERED: LIDOCAINE HCL 1% LOCAL INJ 20 ML VIAL ONE (13:22)
[2017-08-12] MEDS ORDERED: BUPIVACAINE 0.25%/EPI 30ML SDV INJ ONE (13:22)
[2017-08-12] MEDS ORDERED: LIDOCAINE HCL 2% 30 ML TUBE ONE (13:22)
[2017-08-12] MEDS ORDERED: GELATIN SPONGE SZ 100 ONE (13:22)
--- NOTE | 2017-08-12 14:50 | Progress Note ---
DATE: August 12, 2017 PULMONARY MEDICINE PROGRESS NOTE SUBJECTIVE: Mrs. Huber was seen and examined at the bedside. She continues with steady progress. A little bit more color seen in her today. Four liters per minute by nasal cannula with 99% oxygen saturation. Heart rate now came down 97 times. No fevers. She was able to walk in the room today. REVIEW OF SYSTEMS: No bleeding, no rash. OBJECTIVE VITAL SIGNS: Afebrile, vital signs noted per the chart record. GENERAL: In no apparent distress, alert and calm. HEENT: Normocephalic, atraumatic. NECK: Supple. Throat midline. LUNGS: Bilateral air entry, multi-limited, decreased effort, possibly clear. CARDIOVASCULAR: S1 and S2. No murmurs, rubs or gallops. ABDOMEN: Soft, nontender. EXTREMITIES: No cyanosis, clubbing or edema. INTEGUMENT: No rash and no purpura. LABORATORY DATA: Potassium 4.6, BUN 9, creatinine 0.4, bicarbonate 26, white count 11, hematocrit 32. IMPRESSION 1. Severe tachycardia, sinus, multifactorial. 2. Chronic pain. 3. Peritonitis after gastrojejunostomy, anastomosis perforation, status post repair. 4. Weakness. 5. Multifocal pneumonitis, early multiple organ dysfunction syndrome. PLAN: At this time, will continue treatment. Continue antibiotics. The patient can probably go to the floor. She will continue to mobilize there. Continue DVT prophylaxis. Pain medicines will continue to be decreased to lowest needed. SCDs postoperative. Wound care. Job#: [id number]
[2017-08-12] MEDS: FLUCONAZOLE 200 MG/100 ML 100 ML IV SCH (15:03)
--- NOTE | 2017-08-12 16:10 | Progress Note ---
DATE: Ms. Huber continues to improve. She is leaving the ICU. She has no new complaints. PHYSICAL EXAMINATION GENERAL: She is currently alert and oriented. Does not seem to be in acute distress. VITALS: Stable. Afebrile. HEENT: She is not icteric. NECK: Supple. CHEST: Clear bilaterally. COR: S1, S2. No S3, S4 or murmur. ABDOMEN: Soft. IMPRESSION 1. Sepsis, peritonitis, status post gastrojejunostomy with perforation, status post repair, doing better. 2. Pneumonia, also getting better. 3. Anemia of chronic disease. 4. Sepsis, resolving. From an infectious disease point of view, continue with vancomycin, cefepime and fluconazole. Will check a vancomycin trough in the next few days. Continue with supportive care. Laboratory data reviewed. Chart reviewed. Medication list reviewed. Job#: [id number]
[2017-08-12] MEDS: ENOXAPARIN SOD INJ 40 MG/0.4 ML SYR SC SCH (16:29)
[2017-08-12] MEDS: LORAZEPAM INJ 2 MG/ML VIAL IV PRN (20:50)
[2017-08-12] MEDS: CENTRAL TPN FORMULA 1 BAG IV SCH (21:00)
[2017-08-13] VITALS: BP 155/69
[2017-08-13] MEDS: VANCOMYCIN 750MG/NS 150ML IVPB 150 ML IV SCH ×2 (03:15→15:00)
[2017-08-13] MEDS: HYDROMORPHONE 2MG/ML INJ IV PRN ×7 (03:15→21:30)
[2017-08-13 04:00] VITALS: BP 112/59
[2017-08-13] MEDS: CEFEPIME HCL 1 GM VIAL IV SCH ×3 (06:10→22:14)
[2017-08-13 07:33] VITALS: BP 98/56
[2017-08-13 07:36] LABS: BASOPHILS # (AUTO) 0.1 (0.0-0.1); BASOPHILS % 0.9 % (0.0-1.0); EOSINOPHILS # (AUTO) 0.3 (0.0-0.4); EOSINOPHILS % 2.5 % (0.0-6.0); HEMATOCRIT 33.6 % (34.2-44.1); HEMOGLOBIN 10.6 g/dL (12.0-16.0); LYMPHOCYTES # (AUTO) 2.7 (1.0-3.2); LYMPHOCYTES % 21.6 % (18.0-39.1); MEAN CORPUSCULAR HEMOGLOBIN 31.8 pg (28-32); MEAN CORPUSCULAR HGB CONC 31.5 g/dL (31-35); MEAN CORPUSCULAR VOLUME 100.9 fL (81-99); MONOCYTES # (AUTO) 1.4 (0.2-0.8); MONOCYTES % 11.3 % (4.4-11.3); NEUTROPHILS # (AUTO) 7.9 (2.1-6.9); NEUTROPHILS % 63.1 % (38.7-80.0); PLATELET COUNT 422 x10e3/uL (140-360); RED BLOOD COUNT 3.33 x10e6/uL (3.6-5.1)
[2017-08-13] MEDS: BALSAM PERU/CASTOR OIL 60 GM OINT...G. TP SCH ×2 (08:00→17:00)
[2017-08-13 08:29] LABS: ALANINE AMINOTRANSFERASE 8 IU/L (0-55); ALBUMIN 1.9 g/dL (3.5-5.0); ALBUMIN/GLOBULIN RATIO 0.5 (0.8-2.0); ALKALINE PHOSPHATASE 155 IU/L (40-150); ANION GAP 12.2 mmol/L (8-16); BLOOD UREA NITROGEN 7 mg/dL (7-26); BUN/CREATININE RATIO 17 (6-25); CALCIUM 8.8 mg/dL (8.4-10.2); CARBON DIOXIDE 25 mmol/L (22-29); CHLORIDE 105 mmol/L (98-107); CREATININE, SERUM 0.42 mg/dL (0.57-1.11); EST GLOMERULAR FILTRATION RATE > 60 ML/MIN (60-); GLUCOSE 72 mg/dL (74-118); POTASSIUM 4.2 mmol/L (3.5-5.1); SODIUM 138 mmol/L (136-145)
[2017-08-13] MEDS: PANTOPRAZOLE 40 MG 10ML VIAL IV SCH (09:00)
[2017-08-13] MEDS: FUROSEMIDE INJ 10 MG/ML 4 ML VIAL IV SCH (09:00)
[2017-08-13 12:00] VITALS: BP 98/59
--- NOTE | 2017-08-13 13:45 | Progress Note ---
DATE: NO DICTATION () Job#: [id number] KASH
--- NOTE | 2017-08-13 14:25 | Progress Note ---
DATE: August 13, 2017 PULMONARY MEDICINE PROGRESS NOTE SUBJECTIVE: Ms. Huber was seen and examined at the bedside. There is steady progress. Slightly more color to her. More mobilization. Patient with complaints of pain and request for multiple medications. 0.9 L in, 0.5 L out documented. One bowel movement recorded for 2 days in row now. 98% oxygen saturation on 4 L per minute nasal cannula. REVIEW OF SYSTEMS: No bleeding, no rash. OBJECTIVE VITAL SIGNS: Afebrile, vital signs noted per the chart record. GENERAL: In no apparent distress, alert, weak and does not move much. HEENT: Normocephalic, atraumatic. NECK: Supple. Throat midline. LUNGS: Bilateral air entry, limited air entry, rare rhonchi. CARDIOVASCULAR: S1 and S2. No murmurs, rubs, or gallops. ABDOMEN: Soft and nontender. Postsurgical. EXTREMITIES: No cyanosis, clubbing, or edema. INTEGUMENT: No rash and no purpura. LABORATORY DATA: Potassium 4.2, BUN 7, and creatinine 0.4. Alkaline phosphatase 155. Albumin is 1.9. White count 13, hematocrit 34, and platelets 422. IMPRESSION AND PLAN 1. Secondary peritonitis. 2. Perforated gastrojejunostomy and anastomosis. 3. Postoperative state, status post repair and redo anastomosis. 4. Multifocal pneumonitis. 5. Chronic pain. 6. Anemia. Continue current treatment. Continue nutritional supplement as possible or TPN. Patient was started on full liquid diet and TPN is transitioning off. Continue Lasix for now, but we will continue to decrease Lasix in the next few days. Follow up closely. Continue antibiotics. Job#: [id number] KATIE
[2017-08-13] MEDS: FLUCONAZOLE 200 MG/100 ML 100 ML IV SCH (14:39)
--- NOTE | 2017-08-13 14:50 | Progress Note ---
DATE: SUBJECTIVE: The patient continued to do well. She has no complaints. She is on TPN. She does have a drain. REVIEW OF SYSTEMS HEENT: Negative. PULMONARY: Negative. CARDIAC: Negative. PHYSICAL EXAMINATION GENERAL: She is currently alert and oriented. Does not seem to be in acute distress. VITALS: Stable, afebrile. HEENT: She is not icteric. NECK: Supple. CHEST: Clear. HEART: S1 and S2. No S3, S4, or murmur. ABDOMEN: Soft. Bowel sounds present. She has MARLEY drain. IMPRESSION: Status post sepsis, status post peritonitis, status post pneumonia, status post perforation, gastrojejunostomy and anastomosis, status post exploratory laparotomy with internal hernia repair. Continue with IV antibiotic as ordered. She still remaining have some drainage. She is on vancomycin, cefepime, and fluconazole. We will follow with CBC, Chem panel and vancomycin trough. Continue with PT/OT, nutritional support. Job#: [id number] KATIE
[2017-08-13 16:00] VITALS: BP 105/67
[2017-08-13 20:00] VITALS: BP 94/52
[2017-08-13] MEDS ORDERED: CENTRAL TPN FORMULA 1 BAG IV SCH (20:00)
[2017-08-14] VITALS (8 sets, daily range): BP systolic 93–120; BP diastolic 54–65
[2017-08-14] MEDS: LORAZEPAM INJ 2 MG/ML VIAL IV PRN ×2 (00:04→22:50)
[2017-08-14] MEDS: HYDROMORPHONE 2MG/ML INJ IV PRN ×8 (00:45→21:50)
[2017-08-14] MEDS: VANCOMYCIN 750MG/NS 150ML IVPB 150 ML IV SCH ×2 (03:34→15:45)
[2017-08-14] MEDS: CEFEPIME HCL 1 GM VIAL IV SCH ×3 (06:12→21:07)
[2017-08-14 07:24] LABS: BASOPHILS # (AUTO) 0.1 (0.0-0.1); BASOPHILS % 1.2 % (0.0-1.0); EOSINOPHILS # (AUTO) 0.3 (0.0-0.4); EOSINOPHILS % 2.9 % (0.0-6.0); HEMATOCRIT 31.7 % (34.2-44.1); HEMOGLOBIN 10.1 g/dL (12.0-16.0); LYMPHOCYTES # (AUTO) 2.4 (1.0-3.2); LYMPHOCYTES % 28.1 % (18.0-39.1); MEAN CORPUSCULAR HEMOGLOBIN 31.7 pg (28-32); MEAN CORPUSCULAR HGB CONC 31.9 g/dL (31-35); MEAN CORPUSCULAR VOLUME 99.4 fL (81-99); MONOCYTES # (AUTO) 1.2 (0.2-0.8); MONOCYTES % 13.9 % (4.4-11.3); NEUTROPHILS # (AUTO) 4.6 (2.1-6.9); NEUTROPHILS % 53.1 % (38.7-80.0); PLATELET COUNT 375 x10e3/uL (140-360); RED BLOOD COUNT 3.19 x10e6/uL (3.6-5.1); RED CELL DISTRIBUTION WIDTH 19.3 % (11.7-14.4)
[2017-08-14 07:46] LABS: ALANINE AMINOTRANSFERASE 13 IU/L (0-55); ALBUMIN/GLOBULIN RATIO 0.6 (0.8-2.0); ALKALINE PHOSPHATASE 156 IU/L (40-150); ANION GAP 10.1 mmol/L (8-16); BLOOD UREA NITROGEN 10 mg/dL (7-26); BUN/CREATININE RATIO 24 (6-25); CALCIUM 8.8 mg/dL (8.4-10.2); CARBON DIOXIDE 25 mmol/L (22-29); CHLORIDE 106 mmol/L (98-107); CREATININE, SERUM 0.42 mg/dL (0.57-1.11); EST GLOMERULAR FILTRATION RATE > 60 ML/MIN (60-); GLUCOSE 90 mg/dL (74-118); POTASSIUM 4.1 mmol/L (3.5-5.1); SODIUM 137 mmol/L (136-145)
[2017-08-14] MEDS: FUROSEMIDE INJ 10 MG/ML 4 ML VIAL IV SCH (09:00)
[2017-08-14] MEDS: BALSAM PERU/CASTOR OIL 60 GM OINT...G. TP SCH ×2 (09:00→17:23)
[2017-08-14] MEDS: PANTOPRAZOLE 40 MG 10ML VIAL IV SCH (09:00)
[2017-08-14] MEDS ORDERED: ONDANSETRON HCL 4 MG ORAL DISINTEGRATING TAB PO PRN (13:00)
[2017-08-14] MEDS: FLUCONAZOLE 200 MG/100 ML 100 ML IV SCH (15:45)
--- NOTE | 2017-08-14 16:43 | Progress Note ---
DATE: August 14, 2017 PULMONARY MEDICINE PROGRESS NOTE SUBJECTIVE: Ms. Huber was seen and examined at bedside. She continues to have mild weakness, but she is slightly stronger than she was previously. Four liters per minute by nasal cannula and 98% oxygen saturation. The patient had 1 bowel movement today as well as yesterday. The patient is without any labored breathing. REVIEW OF SYSTEMS: No bleeding. No diarrhea. OBJECTIVE VITALS: Afebrile, vital signs noted per electronic record. GENERAL: In no acute distress, alert and calm. HEENT: Normocephalic, atraumatic. NECK: Supple. Throat midline. LUNGS: Bilateral air entry. Decreased breath sounds at the base, clear. CARDIOVASCULAR: S1 and S2. No murmurs, rubs, or gallops. ABDOMEN: Soft and nontender. EXTREMITIES: No clubbing. No cyanosis. There is no edema. INTEGUMENT: No rash and no purpura. LABS: White count 8, 31 hematocrit, 355 platelets, 4.1 potassium, 10 BUN, 0.4 creatinine, albumin 2.0. Blood culture is no growth x5 days, final. IMPRESSION AND PLAN 1. Perforated gastrojejunostomy anastomosis. 2. Status post repair of perforated gastrojejunal anastomosis. 3. Multifocal pneumonitis. 4. Chronic pain. 5. Weakness. Continue antibiotics at this time. Medicine is still on board for fluid excess. Patient currently has improvement in fluid status. Patient is also on psychotropic medications, pain medicines and Ativan at night. Continue to mobilize the patient. Job#: [id number]
[2017-08-15] VITALS (7 sets, daily range): BP systolic 100–122; BP diastolic 57–71
[2017-08-15] MEDS: HYDROMORPHONE 2MG/ML INJ IV PRN ×8 (00:47→21:15)
[2017-08-15] MEDS: VANCOMYCIN 750MG/NS 150ML IVPB 150 ML IV SCH ×2 (03:23→15:25)
[2017-08-15] MEDS: CEFEPIME HCL 1 GM VIAL IV SCH ×2 (06:17→13:00)
[2017-08-15] MEDS: BALSAM PERU/CASTOR OIL 60 GM OINT...G. TP SCH ×2 (08:47→16:10)
[2017-08-15] MEDS: FUROSEMIDE INJ 10 MG/ML 4 ML VIAL IV SCH (09:25)
[2017-08-15] MEDS: PANTOPRAZOLE 40 MG 10ML VIAL IV SCH (09:25)
[2017-08-15] MEDS: NICOTINE 21 MG/EA PATCH TOP SCH (12:28)
[2017-08-15] MEDS ORDERED: ALTEPLASE RECOMBINANT 2 MG/2 ML VIAL IV ONE (12:45)
--- NOTE | 2017-08-15 13:43 | Progress Note ---
DATE: August 15, 2017 PULMONARY MEDICINE PROGRESS NOTE SUBJECTIVE: Ms. Huber was seen and examined at bedside. She continues to have a lot of improvement. She is having better color and even smiling more often. Two liters per minute by nasal cannula with oxygen saturation 96%. She tolerated her full liquid diet. REVIEW OF SYSTEMS: No headaches. No double vision. OBJECTIVE VITALS: Afebrile. Vital signs noted per electronic record. GENERAL: In no acute distress. Alert and calm. HEENT: Normocephalic and atraumatic. NECK: Supple. Throat midline. LUNGS: Bilateral air entry. Decreased effort. Some splinting. CARDIOVASCULAR: S1 and S2. No murmurs, rubs or gallops. ABDOMEN: Soft. Postsurgical. EXTREMITIES: No clubbing. No cyanosis. No edema. INTEGUMENT: No rash. No purpura. LABS: No updates. IMPRESSION AND PLAN 1. Secondary peritonitis. 2. Perforation of gastrojejunostomy anastomosis: Status post redo surgery. 3. Severe protein calorie malnutrition. 4. History of bariatric surgery: Status post Caitie-en-Y. 5. Chronic pain. Continue antibiotics at this time. Continue to mobilize her. Continue to give pain medicines, but slowly wean them down as she gets better. Nicotine patch has been reapplied to her at this time. Follow up closely. She is getting better. Job#: [id number] OSMANI
[2017-08-15] MEDS: TEMAZEPAM 15 MG CAP PO SCH (22:24)
[2017-08-16] VITALS (8 sets, daily range): BP systolic 98–119; BP diastolic 57–75
[2017-08-16] MEDS: HYDROMORPHONE 2MG/ML INJ IV PRN ×8 (00:17→21:10)
[2017-08-16 06:56] LABS: BASOPHILS # (AUTO) 0.1 (0.0-0.1); BASOPHILS % 1.2 % (0.0-1.0); EOSINOPHILS # (AUTO) 0.3 (0.0-0.4); HEMATOCRIT 33.9 % (34.2-44.1); HEMOGLOBIN 10.8 g/dL (12.0-16.0); LYMPHOCYTES # (AUTO) 3.2 (1.0-3.2); LYMPHOCYTES % 31.2 % (18.0-39.1); MEAN CORPUSCULAR HEMOGLOBIN 31.6 pg (28-32); MEAN CORPUSCULAR HGB CONC 31.9 g/dL (31-35); MEAN CORPUSCULAR VOLUME 99.1 fL (81-99); MONOCYTES # (AUTO) 1.4 (0.2-0.8); MONOCYTES % 13.3 % (4.4-11.3); NEUTROPHILS # (AUTO) 5.2 (2.1-6.9); NEUTROPHILS % 50.1 % (38.7-80.0); PLATELET COUNT 589 x10e3/uL (140-360); RED BLOOD COUNT 3.42 x10e6/uL (3.6-5.1); RED CELL DISTRIBUTION WIDTH 19.2 % (11.7-14.4)
[2017-08-16 07:31] LABS: BLOOD UREA NITROGEN 13 mg/dL (7-26); BUN/CREATININE RATIO 25 (6-25); CALCIUM 9.4 mg/dL (8.4-10.2); CARBON DIOXIDE 22 mmol/L (22-29); CHLORIDE 104 mmol/L (98-107); CREATININE, SERUM 0.51 mg/dL (0.57-1.11); EST GLOMERULAR FILTRATION RATE > 60 ML/MIN (60-); MAGNESIUM 1.7 MG/DL (1.3-2.1); SODIUM 138 mmol/L (136-145)
[2017-08-16 07:33] LABS: GLUCOSE 59 mg/dL (74-118)
[2017-08-16] MEDS: BALSAM PERU/CASTOR OIL 60 GM OINT...G. TP SCH ×2 (07:44→16:38)
[2017-08-16] MEDS: PANTOPRAZOLE 40 MG 10ML VIAL IV SCH (07:44)
[2017-08-16] MEDS: NICOTINE 21 MG/EA PATCH TOP SCH (07:44)
[2017-08-16] MEDS: FUROSEMIDE INJ 10 MG/ML 4 ML VIAL IV SCH (07:44)
[2017-08-16] MEDS: DEXTROSE 50% SYRINGE 50 ML IV PRN (11:29)
--- NOTE | 2017-08-16 12:26 | Progress Note ---
DATE: August 16, 2017 PULMONARY MEDICINE PROGRESS NOTE SUBJECTIVE: Ms. Huber was seen and examined at bedside. Two liters per minute by nasal cannula. More energy today. She is able to tolerate some solids so far on the eating. Patient is still getting up intermittently with therapy. REVIEW OF SYSTEMS: No chest pain, no diarrhea. OBJECTIVE VITAL SIGNS: Afebrile. Vital signs noted per electronic record. GENERALLY: No acute distress, alert and calm. HEENT: Normocephalic, atraumatic. NECK: Supple. Throat midline. LUNGS: Bilateral air entry, most clear. CARDIOVASCULAR: S1 and S2. No murmurs, rubs or gallops. ABDOMINAL: Soft, nontender. EXTREMITIES: No clubbing, no cyanosis. There is no edema. INTEGUMENT: No rash. No purpura. IMPRESSION AND PLAN 1. Secondary peritonitis. 2. Perforated gastrojejunostomy anastomosis, status post repair. 3. Severe protein calorie malnutrition. 4. History of bariatric surgery, chronic malnutrition and mineral deficiency. 5. Chronic pain. Continue pain management. Patient is progressing with these. Patient furthermore will continue on nicotine patch. Will continue to encourage her to mobilize. It appears the antibiotics have been stopped and will follow up accordingly. Job#: [id number] KEVON
[2017-08-16] MEDS ORDERED: HYDROMORPHONE 1MG/1ML INJ IV PRN (18:00)
[2017-08-16] MEDS ORDERED: HYDROMORPHONE 2MG/ML INJ IV PRN (18:00)
[2017-08-16] MEDS: TEMAZEPAM 15 MG CAP PO SCH (21:00)
[2017-08-17] VITALS (7 sets, daily range): BP systolic 93–105; BP diastolic 52–70
[2017-08-17] MEDS: HYDROMORPHONE 2MG/ML INJ IV PRN ×6 (00:37→20:59)
[2017-08-17] MEDS: TEMAZEPAM 15 MG CAP PO SCH (01:00)
[2017-08-17] MEDS: BALSAM PERU/CASTOR OIL 60 GM OINT...G. TP SCH ×2 (08:00→17:00)
[2017-08-17] MEDS: FUROSEMIDE INJ 10 MG/ML 4 ML VIAL IV SCH (09:00)
[2017-08-17] MEDS: NICOTINE 21 MG/EA PATCH TOP SCH (10:05)
[2017-08-17] MEDS: PANTOPRAZOLE 40 MG 10ML VIAL IV SCH (10:05)
--- NOTE | 2017-08-17 12:46 | Progress Note ---
DATE: August 17, 2017 PULMONARY MEDICINE PROGRESS NOTE SUBJECTIVE: Ms. Huber was seen and examined at bedside. She continues to have steady progress. She is having gas being passed. She is having 1 bowel movement yesterday. She is tolerating her solids, and she is spontaneously voiding. Oxygen saturation 95% on 2 liters per minute by nasal cannula. REVIEW OF SYSTEMS: No headaches, no rash. OBJECTIVE VITAL SIGNS: Afebrile. Vital signs noted per electronic record. GENERALLY: No acute distress, alert and calm. HEENT: Normocephalic, atraumatic. NECK: Supple. Throat midline. LUNGS: Bilateral air entry, rare rhonchi, decreased breath sounds probably due to decreased effort. CARDIOVASCULAR: S1 and S2. No murmurs, rubs or gallops. ABDOMINAL: Soft, nontender. EXTREMITIES: No clubbing, no cyanosis. There is no edema. INTEGUMENT: No rash. No purpura. IMPRESSION AND PLAN 1. Perforated gastrojejunostomy anastomosis. 2. Postoperative state, status post redo gastrojejunostomy anastomosis. 3. Chronic pain. 4. Secondary peritonitis. 5. Weakness. PLAN: Continue to mobilize the patient. Continue to wean down the oxygen. Patient's multifocal pneumonitis has been getting better. She needs followup closely. Patient will have further local wound care. Continue drains in place. Job#: [id number] KEVON
[2017-08-17] MEDS: HYDROCODONE/APAP 7.5MG-325MG 1 EA TAB PO PRN (13:22)
[2017-08-17] MEDS ORDERED: HYDROMORPHONE 1MG/1ML INJ IV PRN (14:30)
[2017-08-18] VITALS (7 sets, daily range): BP systolic 95–118; BP diastolic 57–70
[2017-08-18] MEDS: HYDROMORPHONE 2MG/ML INJ IV PRN ×8 (00:29→23:30)
[2017-08-18] MEDS: FUROSEMIDE INJ 10 MG/ML 4 ML VIAL IV SCH (08:23)
[2017-08-18] MEDS: BALSAM PERU/CASTOR OIL 60 GM OINT...G. TP SCH ×2 (08:23→17:31)
[2017-08-18] MEDS: PANTOPRAZOLE 40 MG 10ML VIAL IV SCH (08:23)
[2017-08-18] MEDS: NICOTINE 21 MG/EA PATCH TOP SCH (08:24)
--- NOTE | 2017-08-18 12:54 | Progress Note ---
DATE: August 18, 2017 PULMONARY MEDICINE PROGRESS NOTE SUBJECTIVE: Ms. Huber was seen and examined at bedside. She continues to have steady progress. She is not eating all the meals that she gets, but she is eating some. She claims she is having bowel movements. No nausea. Still weak and uses a walker to walk around. This is probably due to her neuropathy she says. REVIEW OF SYSTEMS: No headaches, no bleeding. OBJECTIVE VITALS: Afebrile. Vital signs noted per electronic record. GENERALLY: No acute distress, alert and calm. HEENT: Normocephalic, atraumatic. NECK: Supple. Throat midline. LUNGS: Bilateral air entry, decreased effort, limited. CARDIOVASCULAR: S1 and S2. No murmurs, rubs or gallops. ABDOMINAL: Soft, nontender. EXTREMITIES: No clubbing, no cyanosis. There is no edema. INTEGUMENT: No rash. No purpura. IMPRESSION AND PLAN 1. Perforated gastrojejunostomy anastomosis. 2. Postoperative state, status post repair of gastrojejunostomy anastomosis. 3. Weakness. 4. Severe protein-calorie malnutrition and other chronic malabsorption syndrome. 5. Postoperative state long ago. History of previous Caitie-en-Y bariatric surgery. At this time, we will continue current treatment. Patient will have intermittent electrolytes. Diuretics may be able to be decreased soon. Eventually, she needs chest x-ray followup to resolution, and probably this can be done in 6 weeks as an outpatient. Continue to decrease pain medicines as they are not needed. Continue supplementing her diet and supplementation with vitamins. Job#: [id number]
[2017-08-18] MEDS: HYDROCODONE/APAP 7.5MG-325MG 1 EA TAB PO PRN (13:29)
[2017-08-18] MEDS: TEMAZEPAM 15 MG CAP PO SCH (22:24)
[2017-08-19] VITALS (9 sets, daily range): BP systolic 87–115; BP diastolic 51–76
[2017-08-19] MEDS: HYDROMORPHONE 2MG/ML INJ IV PRN ×5 (02:27→15:39)
[2017-08-19] MEDS: PANTOPRAZOLE 40 MG 10ML VIAL IV SCH (08:34)
[2017-08-19] MEDS: FUROSEMIDE INJ 10 MG/ML 4 ML VIAL IV SCH (08:34)
[2017-08-19] MEDS: NICOTINE 21 MG/EA PATCH TOP SCH (08:34)
[2017-08-19] MEDS: BALSAM PERU/CASTOR OIL 60 GM OINT...G. TP SCH ×2 (08:34→16:02)
[2017-08-19] MEDS: HYDROCODONE/APAP 7.5MG-325MG 1 EA TAB PO PRN (19:34)
[2017-08-19] MEDS: TEMAZEPAM 15 MG CAP PO SCH (23:02)
[2017-08-20] MEDS: HYDROCODONE/APAP 7.5MG-325MG 1 EA TAB PO PRN (06:08)
[2017-08-20 06:12] VITALS: BP 98/62
[2017-08-20 07:21] LABS: ANION GAP 19.9 mmol/L (8-16); BLOOD UREA NITROGEN 13 mg/dL (7-26); BUN/CREATININE RATIO 20 (6-25); CALCIUM 9.6 mg/dL (8.4-10.2); CARBON DIOXIDE 22 mmol/L (22-29); CHLORIDE 101 mmol/L (98-107); CREATININE, SERUM 0.65 mg/dL (0.57-1.11); EST GLOMERULAR FILTRATION RATE > 60 ML/MIN (60-); MAGNESIUM 1.4 MG/DL (1.3-2.1); POTASSIUM 3.9 mmol/L (3.5-5.1); SODIUM 139 mmol/L (136-145)
[2017-08-20 07:31] LABS: GLUCOSE 51 mg/dL (74-118)
[2017-08-20 07:42] VITALS: BP 98/55
[2017-08-20 07:48] VITALS: BP 98/55
[2017-08-20] MEDS: BALSAM PERU/CASTOR OIL 60 GM OINT...G. TP SCH (08:00)
[2017-08-20] MEDS: NICOTINE 21 MG/EA PATCH TOP SCH (08:15)
[2017-08-20] MEDS: PANTOPRAZOLE 40 MG 10ML VIAL IV SCH (08:18)
[2017-08-20] MEDS ORDERED: FUROSEMIDE 20 MG TAB PO SCH (09:00)
[2017-08-20] MEDS ORDERED: MULTIVITAMINS/MINERALS TAB PO SCH (09:00)
[2017-08-20 11:57] VITALS: BP 111/56
--- NOTE | 2017-08-20 14:14 | Progress Note ---
DATE: August 19, 2017 PULMONARY MEDICINE PROGRESS NOTE SUBJECTIVE: Ms. Huber was seen and examined at bedside. She continues to have steady progress. Diet remains tolerated at this time. No nausea. She is having bowel movements. She is still walking with her walker. REVIEW OF SYSTEMS: No headaches. No rash. OBJECTIVE VITALS: Afebrile. Vital signs noted per electronic record. GENERAL: No acute distress, alert and calm. HEENT: Normocephalic, atraumatic. NECK: Supple. Throat midline. LUNGS: Bilateral air entry. A few rhonchi, rare. CARDIOVASCULAR: S1 and S2. No murmurs, rubs or gallops. ABDOMEN: Soft, nontender. EXTREMITIES: No clubbing, no cyanosis. There is no edema. INTEGUMENT: No rash. No purpura. IMPRESSION AND PLAN 1. Perforated gastrojejunostomy anastomosis. 2. Secondary peritonitis. 3. Weakness. 4. Chronic underlying malnutrition. 5. History of bariatric surgery, Caitie-en-Y. Continue current treatment. Patient remains with medicines as needed. Will decrease the diuretic a little bit today. Continue nicotine patch. Antibiotics are on hold. We will continue to observe right now. Follow up closely. Recheck electrolytes in the morning if she is still here. Continue to follow bowel movements and bowel function. Job#: [id number]
--- NOTE | 2017-08-20 17:03 | Progress Note ---
DATE: August 20, 2017 PULMONARY MEDICINE PROGRESS NOTE SUBJECTIVE: Ms. Huber was seen and examined at bedside. Patient with some difficulties with pain over the last day. She has had increased amounts of pain, and she is requesting increase in pain medicines. The patient still with abdominal drains in place. She has had some critical hypoglycemia that did not get better, and the patient was refusing to get some interventions to improve her sugar in the blood. Overall breathing is not worse. Still strong and talking. REVIEW OF SYSTEMS: No headaches. No bleeding. OBJECTIVE VITALS: Afebrile. Vital signs noted per electronic record. GENERAL: No acute distress, alert and calm. HEENT: Normocephalic, atraumatic. NECK: Supple. Throat midline. LUNGS: Bilateral air entry. A few rhonchi. CARDIOVASCULAR: S1 and S2. No murmurs, rubs or gallops. ABDOMEN: Soft, nontender. EXTREMITIES: No clubbing, no cyanosis. There is no edema. INTEGUMENT: No rash. No purpura. LABS: Bicarbonate 22, 10 white count, 34 hematocrit. IMPRESSION AND PLAN 1. Perforated gastrojejunostomy anastomosis. 2. Postoperative state, status post repair of gastrojejunostomy anastomosis. 3. Chronic malnutrition. 4. Hypoglycemia, not otherwise specified. 5. Fillq-nd-gfgwulg pain. Patient likely for discharge against medical advice according to what she said today. The patient has not been cleared to go home. PICC line will be removed. Will recommend her to make sure she eats well. She needs to have good nutrition as an outpatient and take vitamins. Will follow along closely. The patient, if she goes home, will go home and is recommended to have [facility] Dr. Venegas followup next week or two. Job#: [id number]
--- NOTE | 2017-08-21 06:39 | Discharge Summary ---
Patient is a 43-year-old female who came with abdominal pain and getting worse. She has history of morbid obesity. Apparently, she underwent gastric bypass 5 years ago. She was diagnosed with perforated viscus. She was seen by Dr. Venegas and underwent surgery on August 03, 2017, and started on IV antibiotics. Infectious disease was consulted because of fever. She was started on IV antibiotics. She is done with the IV antibiotics. She has a MARLEY drain from the surgical repair from the perforated gastrojejunal anastomosis. The surgeon, Dr. Harper, released her to go home, and to follow up with Dr. Venegas in [address] Rodriguez, infectious disease, released her to go home. She already finished a course of antibiotics Dr. Vinay Wolfe, pulmonology, released her to go home. PHYSICAL EXAMINATION VITALS: Blood pressure 111/56, temperature is 96.1, heart rate 95 per minute, respiratory rate 19 per minute, oxygen saturation 98%. HEART: Shows regular rhythm. Normal S1 and S2 sounds. LUNGS: Clear bilaterally. ABDOMEN: Soft. She has a drain tube in place in the incision in the abdomen from the surgery. On the BMP, sodium 139, potassium 3.9, chloride 101, CO2 22, BUN 13, creatinine 0.66, glucose 51. On the CBC, white blood count 10.3, hemoglobin 10.8, hematocrit 33.9, and platelet count 489,000. PT 13.6, PTT 30.9 and INR 1.13. AST 19, ALT 13, total bilirubin 0.3, alkaline phosphatase 156. Patient is going home today. She has pain management at home. Also, she is going to follow up with Dr. Venegas in approximately 1-2 weeks. Patient is supposed to go to the emergency room should any worsening of her symptoms happen. Patient has a history of chronic pain also. DELFINO AGUILAR MD Job#: [id number] [place]
--- NOTE | 2017-08-21 06:49 | Discharge Summary ---
ADDENDUM Patient refused D50 and refused to eat before she left. She was very alert and oriented. She was competent to make decisions at the time. Her mother was in the room with her. The patient was upset because Dilaudid was discontinued because she was going home. She was extremely upset and extremely verbally abusive with the nurses. The nurses were trying to give her at least some sugar, either IV or p.o. The patient completely refused. She refused to be examined. She refused any type of fixing of her low blood sugar. She was very upset because the Dilaudid was discontinued before going home, which is reasonable to do it because the patient was going home. ADDENDUM TO INTERNAL MEDICINE PROGRESS NOTE: She was alert and oriented. She was competent to make decisions. The mother was with her in the room. DELFINO AGUILAR MD Job#: [id number] [place]
== END 2017-08-20 15:04 | disposition left against medical advice (07) | DRG 853 ==
LOC: ER 20:58 → OR 08-03 01:49 → ICU 08-03 03:33 → MED/SURG3 08-12 15:17
PROC: 0DQV0ZZ Repair Mesentery, Open Approach (ICD-10-PCS; principal; 2017-08-03 02:00)
PROC: 0D160ZA Bypass Stomach to Jejunum, Open Approach (ICD-10-PCS; principal; 2017-08-03 02:00)
PROC: 0DB80ZZ Excision of Small Intestine, Open Approach (ICD-10-PCS; principal; 2017-08-03 02:00)
PROC: 02HV33Z Insertion of Infusion Device into Superior Vena Cava, Percutaneous Approach (ICD-10-PCS; 2017-08-05)
PROC: 30243N1 Transfusion of Nonautologous Red Blood Cells into Central Vein, Percutaneous Approach (ICD-10-PCS; 2017-08-09)
PROC: 0F9440Z Drainage of Gallbladder with Drainage Device, Percutaneous Endoscopic Approach (ICD-10-PCS; 2017-08-09)
DX: A41.9 Sepsis, unspecified organism (principal); K65.8 Other peritonitis; E43 Unspecified severe protein-calorie malnutrition; J18.9 Pneumonia, unspecified organism; G93.40 Encephalopathy, unspecified; K91.89 Other postprocedural complications and disorders of digestive system; Z68.1 Body mass index [BMI] 19.9 or less, adult; K82.1 Hydrops of gallbladder; F11.23 Opioid dependence with withdrawal; J95.89 Other postprocedural complications and disorders of respiratory system, not elsewhere classified; K56.7 Ileus, unspecified; K46.0 Unspecified abdominal hernia with obstruction, without gangrene; E16.2 Hypoglycemia, unspecified; G89.29 Other chronic pain; D63.8 Anemia in other chronic diseases classified elsewhere; E83.42 Hypomagnesemia; E87.6 Hypokalemia; R09.02 Hypoxemia; L89.159 Pressure ulcer of sacral region, unspecified stage; Z53.29 Procedure and treatment not carried out because of patient's decision for other reasons; G62.9 Polyneuropathy, unspecified; R63.6 Underweight; L89.329 Pressure ulcer of left buttock, unspecified stage; L89.319 Pressure ulcer of right buttock, unspecified stage
CPT/HCPCS: 36415; 36569; 47490; 71045; 74176; 74177; 80048; 80053; 80178; 80202; 80307; 81001; 82150; 82607; 82746; 82948; 83605; 83690; 83735; 84100; 84134; 84207; 84425; 84436; 84443; 84478; 84479; 84702; 85025; 85610; 85730; 86850; 86900; 86920; 87040; 87070; 87205; 88305; 88307; 93005; 93970; 96361; 96366; 97139; 99284; J0692; J1100; J1450; J1650; J1940; J1956; J2001; J2060; J2250; J2270; J2405; J2710; J2997; J3411; J3475; J3480; J7030; J7050; J7070; J7120; J7799; P9016; Q9967